=== PATIENT | male | born 2000 | race African-American/Black ===

== ENCOUNTER 2024-05-12 16:36 | Emergency (ER) | payer OTHER, SELFPAY ==
--- NOTE | ~2024-05-12 | XR_ITS ---
CLINICAL HISTORY: fall unto shoulder pain. fracture? dislcoation? 4 view right shoulder Comparison: None Findings: Bones intact. Ray 3 AC joint separation No significant loss of joint space or osteophytes. No erosions. No radiopaque foreign body. IMPRESSION: 1. Grade 3 AC joint separation This document has been electronically signed by: Luca Khalil MD on 05/12/2024 18:03:53
[2024-05-12 16:51] VITALS: BP 147/87; PULSE 92; RESP 19; TEMP 36.6; O2SAT 98; BMI 23.8
--- NOTE | 2024-05-12 16:58 | ED_ITS ---
HPI - General Adult General Chief complaint: Upper Respiratory Symptoms Stated complaint: fell,right collarbone inj Time Seen by Provider: 05/12/24 19:59 History of Present Illness HPI narrative: Patient complains of right shoulder pain after falling while going fast downhill snowboarding, denies any head injury or neck injury no back pain no neck pain no headache no other extremity injuries Denies numbness weakness or tingling Related Data Previous Rx's ?Medication ?Instructions ?Recorded acetaminophen 500 mg tablet 1,000 mg (2 x 500 mg) PO QID PRN 05/12/24 pain #30 tabs ibuprofen 600 mg tablet 600 mg PO Q6H PRN pain #20 tabs 05/12/24 oxycodone 5 mg tablet 5 mg PO Q6H PRN pain #14 tabs 05/12/24 Allergies Allergy/AdvReac Type Severity Reaction Status Date / Time No Known Allergies Allergy Verified 05/12/24 16:56 [facility] Past Medical History Source: nursing notes reviewed Social History Social History Advance Directives: No Advance Directives Information Provided: No Do you have a plan to hurt others: No Plan Physical Exam ED Vital Signs: Vital Signs - 24 hr 05/12/24 16:51 05/12/24 20:38 Temperature 98 F 98 F Pulse Rate 92 92 Respiratory Rate 19 19 Blood Pressure 147/87 H 147/87 H Pulse Oximetry 98 98 BMI result Body Mass Index 23.8 General appearance no distress Head is normocephalic atraumatic The neck is supple and nontender The chest is clear to auscultation bilateral Extremities the right shoulder has a bump on top, it is tender and held in internal rotation with a sling, the skin is intact, it is neurovascular intact distal with good sensation in fingertips and full strength in the hand and a normal pulse, radial pulse normal Other extremities normal Neuro no focal motor or sensory deficits Course Course Course Narrative: RME: 24-year-old male presents to ED for right shoulder pain. Patient was snowboarding any slept and fell onto his right shoulder. Patient denies hitting head. Patient is holding right upper extremity with left. Possible dislocation crusted arnulfo. X-ray ordered. X-ray showed a grade 3 acromioclavicular separation, patient is given sling and swath, analgesics and referral to Orthopedics Medications Administered Discontinued Medications Generic Name Dose Route Start Last Admin Trade Name Freq PRN Reason Stop Dose Admin Acetaminophen 975 mg 05/12/24 20:15 05/12/24 20:28 Acetaminophen 325 Mg Tablet PO 05/12/24 20:16 975 mg ONCE ONE Administration Ibuprofen 600 mg 05/12/24 20:15 05/12/24 20:30 Ibuprofen 600 Mg Tablet PO 05/12/24 20:16 600 mg ONCE ONE Administration Oxycodone HCl 5 mg 05/12/24 20:15 05/12/24 20:28 Oxycodone Hcl Immed Release 5 Mg Tablet PO 05/12/24 20:16 5 mg ONCE ONE Administration Discharge Plan Discharge Clinical Impression: Grade 3 separation of right shoulder Patient Disposition: Home, Self-Care Additional Instructions: X-ray showed a grade 3 shoulder separation, which is also known as an AC separation or rotator cuff injury The treatment is often surgical, so very important to follow with a specialist Return any time any worse condition or any concerns The oxycodone is a narcotic that can cause drowsiness so no driving for 6 hours after taking Prescriptions: New acetaminophen 500 mg tablet 1,000 mg PO QID PRN (Reason: pain) Qty: 30 0RF ibuprofen 600 mg tablet 600 mg PO Q6H PRN (Reason: pain) Qty: 20 0RF oxycodone 5 mg tablet 5 mg PO Q6H PRN (Reason: pain) Qty: 14 0RF Rx Instructions: Partial Fill upon patient request. Referrals: Pedro Thompson MD [Physician] - (Right shoulder separation) Stand Alone Forms: Work/School Release Interventions: ED Discharge Assessment Last Done: 05/12/24 20:38 Discharge Date/Time: 05/12/24 20:39 Print Language: Nicaraguan
--- OUTSIDE RECORDS SUMMARY | 2024-05-12 20:12 | XMS_ITS | Encounter Summary ---
Author Name [facility] [place] Organization [facility] [place] [place] Address [address] [place] [address] Care Team Providers Care Director Of Patient Care Name Role Phone ANGEL SAEED Primary Care Provider Unavailab le Selected Encounter This section includes the information on record at [place] for the Encounter. Date/Time Encounter Type Encounter Description Reason Pro vider Source Jul 10, 2023 02:40 PM Outpatient Encounter ADMIN PAT ACTIVTIES (MASNONCT) IHE Encounter Template Text not used by [place] Plan of Treatment: Future Appointments (+ 6 months) and Future Tests (+/- 45 days) The Plan of Treatment section includes future care activities for the patient from all [place] treatmentfacilities. This section includes future appointments and future orders which are active, pending or scheduled. Future Appointments This section includes appointments that were scheduled to occur 6 months from the date of the Encounter, up to a maximum of 20 appointments. The data comes from all [place] treatment facilities. Appointment Date/Time Appointment Type Appointme nt Facility Name Jul 14, 2023 01:30 PM AMBULATORY - MEDICINE [facility] Active, Pending, and Scheduled Orders This section includes a listing of several types of active, pending, and scheduled orders, including clinic medications orders, diagnostic test orders, procedure orders and consult orders; where the start date of the order is 45 days before the date of the Encounter or 45 days after the date of theEncounter. The data comes from all [place] treatment facilities. Test Date/Time Test Type Test Details Facility Name Jun 23, 2023 12:00 AM Laboratory - Chemistry Order CBC (w/reflex Diff) LAV-BLOOD SP ONCE [facility] Jun 23, 2023 12:00 AM Laboratory - Chemistry Order COMPREHENSIVE METABOLIC PANEL PLASMA-GREEN SP ONCE [facility] Jun 23, 2023 12:00 AM Laboratory - Chemistry Order URINALYSIS URINE [facility] Jun 23, 2023 12:00 AM Laboratory - Chemistry Order LIPID PANEL PLASMA-GREEN [facility] Jun 23, 2023 12:00 AM Laboratory - Chemistry Order HGBA1c & eAG LAV-BLOOD [facility] Jun 23, 2023 12:00 AM Laboratory - Chemistry Order MICROALBUMIN (RANDOM URINE) URINE [facility] Jun 23, 2023 12:00 AM Laboratory - Chemistry Order VITAMIN D, 25-HYDROXY SERUM-SST(GOLD) [facility] Jun 23, 2023 12:00 AM Laboratory - Chemistry Order TSH SERUM-SST(GOLD) [facility] Encounter Notes: All associated encounter notes This section contains the clinical notes associated to the Encounter. Date/Time Encounter Note(s) Provider Source Jul 10, 2023 02:40 PM ADMINISTRATIVE NOTE: LOCAL TITLE: 1 [facility] PATIENT CONTACT NOTE STANDARD TITLE: ADMINISTRATIVE NOTE DATE OF NOTE: JUL 10, 2023@14:40 ENTRY DATE: JUL 10, 2023@14:40:10 AUTHOR: ARTIE BERNABE EXP COSIGNER: URGENCY: STATUS: COMPLETED REASON FOR CALLING : Bethel called he missed the call and requesting for a call back now. Thank you. /ronald/ ARTIE BERNABE ADVANCED HYPERION ESSBASE DEVELOPER Signed: 07/10/2023 14:41 Receipt Acknowledged By: 07/14/2023 07:37 /ronald/ DANITZA SOTO dairy specialist multiple effect evaporator operator ARTIE BERNABE [facility]
--- OUTSIDE RECORDS SUMMARY | 2024-05-12 20:12 | XMS_ITS | Encounter Summary ---
Author Name [facility] [place] Organization [facility] [place] [facility] [place] Address [address] [place] [address] Care Team Providers Care Medical Aide Name Role Phone ANGEL SAEED Primary Care Provider Unavailab le Selected Encounter This section includes the information on record at [place] for the Encounter. Date/Time Encounter Type Encounter Description Reason Pro vider Source Jul 14, 2023 07:37 AM Outpatient Encounter TELEPHONE PRIMARY CARE IHE Encounter Template Text not used by [place] Plan of Treatment: Future Appointments (+ 6 months) and Future Tests (+/- 45 days) The Plan of Treatment section includes future care activities for the patient from all [place] treatmentfacilities. This section includes future appointments and future orders which are active, pending or scheduled. Active, Pending, and Scheduled Orders This section includes a listing of several types of active, pending, and scheduled orders, including clinic medications orders, diagnostic test orders, procedure orders and consult orders; where the start date of the order is 45 days before the date of the Encounter or 45 days after the date of theEncounter. The data comes from all [place] treatment facilities. Test Date/Time Test Type Test Details Facility Name Jun 23, 2023 12:00 AM Laboratory - Chemistry Order CBC (w/reflex Diff) LAV-BLOOD SP ONCE [facility] Jun 23, 2023 12:00 AM Laboratory - Chemistry Order COMPREHENSIVE METABOLIC PANEL PLASMA-GREEN SP ONCE [facility] Jun 23, 2023 12:00 AM Laboratory - Chemistry Order URINALYSIS URINE SP [facility] Jun 23, 2023 12:00 AM Laboratory - Chemistry Order LIPID PANEL PLASMA-GREEN SP [facility] Jun 23, 2023 12:00 AM Laboratory - Chemistry Order HGBA1c & eAG LAV-BLOOD SP [facility] Jun 23, 2023 12:00 AM Laboratory - Chemistry Order MICROALBUMIN (RANDOM URINE) URINE [facility] Jun 23, 2023 12:00 AM Laboratory - Chemistry Order VITAMIN D, 25-HYDROXY SERUM-SST(GOLD) [facility] Jun 23, 2023 12:00 AM Laboratory - Chemistry Order TSH SERUM-SST(GOLD) [facility] Encounter Notes: All associated encounter notes This section contains the clinical notes associated to the Encounter. Date/Time Encounter Note(s) Provider Source Jul 14, 2023 10:00 AM TELEPHONE ENCOUNTE R NOTE: LOCAL TITLE: PACT Telephone Note STANDARD TITLE: TELEPHONE ENCOUNTER NOTE DATE OF NOTE: JUL 14, 2023@10:00 ENTRY DATE: JUL 14, 2023@07:38:02 AUTHOR: DANITZA SOTO EXP COSIGNER: URGENCY: STATUS: COMPLETED S - 07/07/23 Requesting to speak with pcp in regard to some paperwork. Per vet, it's a lot of information to relay; requesting call to discuss. B - PMHx - without significant past medical history. Noted history of hallux valgus bilaterally that is not currently functionally impairing. 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 Patient has no current complaints. He is interested in reenlisting in the [employer] and [facility] has requested routine physical exam. A - TC to pt. Verified with 2 ID's. Clarified documents that are requested. Re enlisting to [employer]. Pt has coordinated with [employer] office and only needs physical report from PCP. Pt did not leave a copy of the documents from last visit. Advised pt to send pdf file via secure message for review. R - Pt verbalized understanding, agree with plan of care and appreciative of care. /ronald/ DANITZA SOTO RN Primary Care stock feeder Signed: 07/14/2023 10:14 [facility]
--- OUTSIDE RECORDS SUMMARY | 2024-05-12 20:12 | XMS_ITS | Encounter Summary ---
Author Name [facility] Organization [facility] ([place]) Address [address] [place] [id number] Care Team Providers Care Outside Sales Representative Insurance Name Role Phone ANGEL SAEED Primary Care Provider Unavailab le Selected Encounter This section includes the information on record at [place] for the Encounter. Date/Time Encounter Type Encounter Description Reason Provider Source Jul 14, 2023 01:30 PM HC PRO PHONE CALL 5-10 MIN TELEPHONE PRIMARY CARE ICD-10-CM Z71.89 Other specified counseling DANITZA SOTO [facility] Encounter Template Text not used by [place] Assessments - Encounter Diagnoses This section includes the primary and secondary diagnoses documented for the Encounter. Date/Time Primary/Secondary Diagnosis Diagnosis Name Provider Source Jul 14, 2023 01:30 PM PRIMARY Other specified counseling [facility] Plan of Treatment: Future Appointments (+ 6 months) and Future Tests (+/- 45 days) The Plan of Treatment section includes future care activities for the patient from all [place] treatmentfacilities. This section includes future appointments and [...] of theEncounter. The data comes from all [place] treatment facilities. Test Date/Time Test Type Test Details Facility Name Jun 23, 2023 12:00 AM Laboratory - Chemistry Order CBC (w/reflex Diff) LAV-BLOOD SP ONCE [facility] Jun 23, 2023 12:00 AM Laboratory - Chemistry Order COMPREHENSIVE METABOLIC PANEL PLASMA-GREEN ONCE [facility] Jun 23, 2023 12:00 AM Laboratory - Chemistry Order URINALYSIS URINE [facility] Jun 23, 2023 12:00 AM Laboratory - Chemistry Order LIPID PANEL PLASMA-GREEN [facility] Jun 23, 2023 12:00 AM Laboratory - Chemistry Order HGBA1c & eAG LAV-BLOOD [facility] Jun 23, 2023 12:00 AM Laboratory - Chemistry Order MICROALBUMIN (RANDOM URINE) URINE [facility] Jun 23, 2023 12:00 AM Laboratory - Chemistry Order VITAMIN D, 25-HYDROXY SERUM-SST(GOLD) [facility] Jun 23, 2023 12:00 AM Laboratory - Chemistry Order TSH SERUM-SST(GOLD) [facility] Social History: Smoking Status (Most current) and Tobacco Use (All prior to encounter date) This section includes the most current, and the historical, smoking and tobacco- related health factors from the [place] facility where the Encounter took place. Current Smoking Status This section includes the most current smoking, or tobacco-related health factor, from the [place] facility where the Encounter took place. Date/Time Current Smoking Status Comment [place] [facility] May 12, 2023 09:00 AM [place]-TOBACCO FORMER USER [facility] Tobacco Use History This section includes a history of the smoking, or tobacco-related health factors, that were collected on or before the date of the Encounter. The data comes from the [place] facility where the Encounter took place. Date/Time Smoking Status/Tobacco Use Comment F acility May 12, 2023 09:00 AM [place]-TOBACCO QUIT < 1 YEAR [facility]
--- OUTSIDE RECORDS SUMMARY | 2024-05-12 20:12 | XMS_ITS ---
Author Name [facility] [place] Organization [facility] [place] Address [address] [place] [address] Care Team Providers Care Outdoor Adventure Instructor Name Role Phone ANGEL SAEED Primary Care Provider Unavailab le Selected Encounter This section includes the information on record at [place] for the Encounter. Date/Time Encounter Type Encounter Description Reason Pro vider Source Jul 07, 2023 01:37 PM Outpatient Encounter ADMIN PAT ACTIVTIES (MASNONCT) IHE Encounter Template Text not used by [place] Plan of Treatment: Future Appointments (+ 6 months) and Future Tests (+/- 45 days) The Plan of Treatment section includes future care activities for the patient from all [place] treatmentfacilities. This section includes future appointments and future orders which are active, pending or scheduled. Future Appointments This section includes appointments that were scheduled to occur 6 months from the date of the Encounter, up to a maximum of 20 appointments. The data comes from all [place] treatment facilities. Appointment Date/Time Appointment Type Appointme nt Facility Name Jul 14, 2023 01:30 PM AMBULATORY - MEDICINE [facility] Active, Pending, and Scheduled Orders This section includes a listing of several types of active, pending, and scheduled orders, including clinic medications orders, diagnostic test orders, procedure orders and consult orders; where the start date of the order is 45 days before the date of the Encounter or 45 days after the date of theEncounter. The data comes from all [place] treatment facilities. Test Date/Time Test Type Test Details Facility Name Jun 23, 2023 12:00 AM Laboratory - Chemistry Order CBC (w/reflex Diff) [facility] Jun 23, 2023 12:00 AM Laboratory - Chemistry Order COMPREHENSIVE METABOLIC PANEL PLASMA-GREEN SP ONCE [facility] Jun 23, 2023 12:00 AM Laboratory - Chemistry Order URINALYSIS URINE [facility] Jun 23, 2023 12:00 AM Laboratory - Chemistry Order LIPID PANEL PLASMA-GREEN [facility] Jun 23, 2023 12:00 AM Laboratory - Chemistry Order HGBA1c & eAG LAV-BLOOD [facility] Jun 23, 2023 12:00 AM Laboratory - Chemistry Order MICROALBUMIN (RANDOM URINE) URINE [facility] Jun 23, 2023 12:00 AM Laboratory - Chemistry Order VITAMIN D, 25-HYDROXY SERUM-SST(GOLD) [facility] Jun 23, 2023 12:00 AM Laboratory - Chemistry Order TSH SERUM-SST(GOLD) [facility] Encounter Notes: All associated encounter notes This section contains the clinical notes associated to the Encounter. Date/Time Encounter Note(s) Provider Source Jul 07, 2023 01:37 PM ADMINISTRATIVE NOTE: LOCAL TITLE: [address] PATIENT CONTACT NOTE STANDARD TITLE: ADMINISTRATIVE NOTE DATE OF NOTE: JUL 07, 2023@13:37 ENTRY DATE: JUL 07, 2023@13:37:09 AUTHOR: DIETER CAMARA EXP COSIGNER: URGENCY: STATUS: COMPLETED Spoke with: Patient Contact info per CPRS: JARROD CASAS [address] [address] What is the best time to call you during regular business hours? Anytime Reason for calling: Request to speak with Outdoor Adventure Instructor: PACT team Requesting to speak with pcp in regard to some paperwork. Per vet, it's a lot of information to relay; requesting call to discuss. /ronald/ DIETER ENRIQUE Signed: 07/07/2023 13:38 Receipt Acknowledged By: 07/08/2023 07:29 /ronald/ DANITZA SOTO RN PACT RNCM [facility]
--- OUTSIDE RECORDS SUMMARY | 2024-05-12 20:12 | XMS_ITS | Encounter Summary ---
Author Name [facility] [place] Organization [facility] [place] Address [address] [place] [address] Care Team Providers Care Marketing Professional Name Role Phone ANGEL SAEED Primary Care Provider Unavailab le Selected Encounter This section includes the information on record at [place] for the Encounter. Date/Time Encounter Type Encounter Description Reason Pro vider Source Jul 09, 2023 10:36 AM Outpatient Encounter TELEPHONE PRIMARY CARE IHE Encounter Template Text not used by [place] Plan of Treatment: Future Appointments (+ 6 months) and Future Tests (+/- 45 days) The Plan of Treatment section includes future care activities for the patient from all [place] treatmentfacilities. This section includes future appointments and future orders which are active, pending or scheduled. Future Appointments This section includes appointments that were scheduled to occur 6 months from the date of the Encounter, up to a maximum of 20 appointments. The data comes from all [place] treatment facilities. Appointment Date/Time Appointment Type Appointme nt Facility Name Jul 14, 2023 01:30 PM AMBULATORY - MEDICINE [facility] Active, Pending, and Scheduled Orders This section includes a listing of several types of active, pending, and scheduled orders, including clinic medications orders, diagnostic test orders, procedure orders and consult orders; where the start date of the order is 45 days before the date of the Encounter or 45 days after the date of theEncounter. The data comes from all [place] treatment facilities. Test Date/Time Test Type Test Details Facility Name Jun 23, 2023 12:00 AM Laboratory - Chemistry Order CBC (w/reflex Diff) LAV-BLOOD SP ONCE [facility] Jun 23, 2023 12:00 AM Laboratory - Chemistry Order COMPREHENSIVE METABOLIC PANEL PLASMA-GREEN SP ONCE [facility] Jun 23, 2023 12:00 AM Laboratory - Chemistry Order URINALYSIS URINE [facility] Jun 23, 2023 12:00 AM Laboratory - Chemistry Order LIPID PANEL PLASMA-GREEN [facility] Jun 23, 2023 12:00 AM Laboratory - Chemistry Order HGBA1c & eAG LAV-BLOOD [facility] Jun 23, 2023 12:00 AM Laboratory - Chemistry Order MICROALBUMIN (RANDOM URINE) URINE [facility] Jun 23, 2023 12:00 AM Laboratory - Chemistry Order VITAMIN D, 25-HYDROXY SERUM-SST(GOLD) [facility] Jun 23, 2023 12:00 AM Laboratory - Chemistry Order TSH SERUM-SST(GOLD) [facility] Encounter Notes: All associated encounter notes This section contains the clinical notes associated to the Encounter. Date/Time Encounter Note(s) Provider Source Jul 09, 2023 10:36 AM TELEPHONE ENCOUNTE R NOTE: LOCAL TITLE: PACT Telephone Note STANDARD TITLE: TELEPHONE ENCOUNTER NOTE DATE OF NOTE: JUL 09, 2023@10:36 ENTRY DATE: JUL 09, 2023@10:36:56 AUTHOR: DANITZA SOTO EXP COSIGNER: URGENCY: STATUS: COMPLETED TC to pt left voicemail to call back regarding request. Left [facility] [phone] call back. /ronald/ DANITZA SOTO RN Primary Care collision repairer Signed: 07/09/2023 10:37 DANITZA SOTO [facility]
--- OUTSIDE RECORDS SUMMARY | 2024-05-12 20:12 | XMS_ITS | Encounter Summary ---
Author Name [facility] [place] Organization [facility] [place] Address [address] [place] [address] Care Team Providers Care Drop Man Name Role Phone ANGEL SAEED Primary Care Provider Unavailab le Selected Encounter This section includes the information on record at [place] for the Encounter. Date/Time Encounter Type Encounter Description Reason Pro vider Source Jul 07, 2023 02:34 PM Outpatient Encounter TELEPHONE PRIMARY CARE IHE Encounter Template Text not used by [place] Plan of Treatment: Future Appointments (+ 6 months) and Future Tests (+/- 45 days) The Plan of Treatment section includes future care activities for the patient from all [place] treatmentfacilities. This section includes future appointments and future orders which are active, pending or scheduled. Future Appointments This section includes appointments that were scheduled to occur 6 months from the date of the Encounter, up to a maximum of 20 appointments. The data comes from all [place] treatment facilities. Appointment Date/Time Appointment Type Appointme nt Facility Name Jul 14, 2023 01:30 PM AMBULATORY - MEDICINE [facility] Active, Pending, and Scheduled Orders This section includes a listing of several types of active, pending, and scheduled orders, including clinic medications orders, diagnostic test orders, procedure orders and consult orders; where the start date of the order is 45 days before the date of the Encounter or 45 days after the date of theEncounter. The data comes from all [place] treatment facilities. Test Date/Time Test Type Test Details Facility Name Jun 23, 2023 12:00 AM Laboratory - Chemistry Order CBC (w/reflex Diff) LAV-BLOOD SP ONCE [facility] Jun 23, 2023 12:00 AM Laboratory - Chemistry Order COMPREHENSIVE METABOLIC PANEL PLASMA-GREEN SP ONCE [facility] Jun 23, 2023 12:00 AM Laboratory - Chemistry Order URINALYSIS URINE [facility] Jun 23, 2023 12:00 AM Laboratory - Chemistry Order LIPID PANEL PLASMA-GREEN [facility] Jun 23, 2023 12:00 AM Laboratory - Chemistry Order HGBA1c & eAG LAV-BLOOD [facility] Jun 23, 2023 12:00 AM Laboratory - Chemistry Order MICROALBUMIN (RANDOM URINE) URINE [facility] Jun 23, 2023 12:00 AM Laboratory - Chemistry Order VITAMIN D, 25-HYDROXY SERUM-SST(GOLD) [facility] Jun 23, 2023 12:00 AM Laboratory - Chemistry Order TSH SERUM-SST(GOLD) [facility] Encounter Notes: All associated encounter notes This section contains the clinical notes associated to the Encounter. Date/Time Encounter Note(s) Provider Source Jul 10, 2023 02:13 PM TELEPHONE ENCOUNTE R NOTE: LOCAL TITLE: PACT Telephone Note STANDARD TITLE: TELEPHONE ENCOUNTER NOTE DATE OF NOTE: JUL 10, 2023@14:13 ENTRY DATE: JUL 07, 2023@14:34:15 AUTHOR: DANITZA SOTO EXP COSIGNER: URGENCY: STATUS: COMPLETED TC to pt left voicemail to call back regarding request. Left [facility] [phone] call back. /ronald/ DANITZA SOTO RN Primary Care comp field case manager Signed: 07/10/2023 14:14 DANITZA SOTO [facility]
--- OUTSIDE RECORDS SUMMARY | 2024-05-12 20:12 | XMS_ITS | Encounter Summary ---
Author Name [facility] ([place]) Organization [facility] ([place]) Address [address] [place] [address] Care Team Providers Care Marble Installer Name Role Phone MARCELO SAEED Primary Care Provider Unavailab le Selected Encounter This section includes the information on record at [place] for the Encounter. Date/Time Encounter Type Encounter Description Reason Provider Source Jul 16, 2023 11:47 AM Outpatient Encounter PRIMARY CARE/MEDICINE ONEAL POLANCO [facility] Encounter Template Text not used by [place] Plan of Treatment: Future Appointments (+ 6 months) and Future Tests (+/- 45 days) The Plan of Treatment section includes future care activities for the patient from all [place] treatmentfacilities. This section includes future appointments and [...] of theEncounter. The data comes from all [place] treatment facilities. Test Date/Time Test Type Test Details Facility Name Jun 23, 2023 12:00 AM Laboratory - Chemistry Order CBC (w/reflex Diff) LAV-BLOOD SP ONCE [facility] Jun 23, 2023 12:00 AM Laboratory - Chemistry Order COMPREHENSIVE METABOLIC PANEL PLASMA-GREEN SP ONCE [facility] Jun 23, 2023 12:00 AM Laboratory - Chemistry Order URINALYSIS URINE SP [facility] Jun 23, 2023 12:00 AM Laboratory - Chemistry Order LIPID PANEL PLASMA-GREEN SP [facility] Jun 23, 2023 12:00 AM Laboratory - Chemistry Order HGBA1c & eAG LAV-BLOOD [facility] Jun 23, 2023 12:00 AM Laboratory - Chemistry Order MICROALBUMIN (RANDOM URINE) URINE [facility] Jun 23, 2023 12:00 AM Laboratory - Chemistry Order VITAMIN D, 25-HYDROXY SERUM-SST(GOLD) [facility] Jun 23, 2023 12:00 AM Laboratory - Chemistry Order TSH SERUM-SST(GOLD) [facility] Encounter Notes: All associated encounter notes This section contains the clinical notes associated to the Encounter. Date/Time Encounter Note(s) Provider Source Jul 20, 2023 01:41 PM PRIMARY CARE SECUR E MESSAGING: LOCAL TITLE: Primary Care Secure Messaging STANDARD TITLE: PRIMARY CARE SECURE MESSAGING DATE OF NOTE: JUL 20, 2023@13:41 ENTRY DATE: JUL 20, 2023@11:41:35 AUTHOR: ONEAL POLANCO EXP COSIGNER: URGENCY: STATUS: COMPLETED ------Original Message ------- Sent: 07/20/2023 11:12 AM ET From: JARROD CASAS To: Yohan Saeed (Primary Care) - [place] Subject: General:General Attachments: O 1040.31.pdf (425.02 KB) As requested ------Original Message ------- Sent: 07/20/2023 02:41 PM ET From: ONEAL POLANCO To: JARROD CASAS Subject: General:General Thank you and this will be forwarded to your PCP. Have a nice day. /ronald/ ONEAL POLANCO Signed: 07/20/2023 11:41 Receipt Acknowledged By: 07/20/2023 14:30 /ronald/ Marcelo Saeed MD Internal Medicine ONEAL POLANCO [facility] Jul 16, 2023 11:47 AM PRIMARY CARE SECUR E MESSAGING: LOCAL TITLE: Primary Care Secure Messaging STANDARD TITLE: PRIMARY CARE SECURE MESSAGING DATE OF NOTE: JUL 16, 2023@11:47 ENTRY DATE: JUL 16, 2023@08:47:20 AUTHOR: ONEAL POLANCO EXP COSIGNER: URGENCY: STATUS: COMPLETED ------Original Message ------- Sent: 07/16/2023 11:47 AM ET From: ONEAL POLANCO To: JARROD CASAS Subject: General:General Greetings. Per remarks by your PCP, Uploaded document contains no text. Please re-upload. Thanks!' In this regard, please check attachment when sending it back. Thank you and have a nice day. /ronald/ ONEAL POLANCO Signed: 07/16/2023 08:47 ONEAL POLANCO [facility]
--- OUTSIDE RECORDS SUMMARY | 2024-05-12 20:12 | XMS_ITS | Encounter Summary ---
Author Name [facility] [place] Organization [facility] ([place] Address [address] [place] [address] Care Team Providers Care Electric Relay Tester Name Role Phone MARCELO LOGAN Primary Care Provider Unavailab le Selected Encounter This section includes the information on record at [place] for the Encounter. Date/Time Encounter Type Encounter Description Reason Provider Source Jul 15, 2023 02:31 PM Outpatient Encounter PRIMARY CARE/MEDICINE ONEAL POLANCO [facility] Encounter Template Text not used by [place] Plan of Treatment: Future Appointments (+ 6 months) and Future Tests (+/- 45 days) The Plan of Treatment section includes future care activities for the patient from all [place] treatmentfacilities. This section includes future appointments and [...] of theEncounter. The data comes from all [place] treatment facilities. Test Date/Time Test Type Test Details Facility Name Jun 23, 2023 12:00 AM Laboratory - Chemistry Order CBC (w/reflex Diff) LAV-BLOOD SP ONCE [facility] Jun 23, 2023 12:00 AM Laboratory - Chemistry Order COMPREHENSIVE METABOLIC PANEL PLASMA-GREEN SP [facility]CE [facility] Jun 23, 2023 12:00 AM Laboratory - Chemistry Order URINALYSIS URINE SP [facility] Jun 23, 2023 12:00 AM Laboratory - Chemistry Order LIPID PANEL PLASMA-GREEN SP [facility] Jun 23, 2023 12:00 AM Laboratory - Chemistry Order HGBA1c & eAG LAV-BLOOD [facility] Jun 23, 2023 12:00 AM Laboratory - Chemistry Order MICROALBUMIN (RANDOM URINE) URINE [facility] Jun 23, 2023 12:00 AM Laboratory - Chemistry Order VITAMIN D, 25-HYDROXY SERUM-SST(GOLD) [facility] Jun 23, 2023 12:00 AM Laboratory - Chemistry Order TSH SERUM-SST(GOLD) [facility] Encounter Notes: All associated encounter notes This section contains the clinical notes associated to the Encounter. Date/Time Encounter Note(s) Provider Source Jul 15, 2023 02:31 PM PRIMARY CARE SECUR E MESSAGING: LOCAL TITLE: Primary Care Secure Messaging STANDARD TITLE: PRIMARY CARE SECURE MESSAGING DATE OF NOTE: JUL 15, 2023@14:31 ENTRY DATE: JUL 15, 2023@11:31:16 AUTHOR: ONEAL POLANCO EXP COSIGNER: URGENCY: STATUS: COMPLETED Primary Care Secure Messaging Has ADDENDA ------Original Message ------- Sent: 07/15/2023 01:59 PM ET From: JARROD CASAS To: Yohan Logan (Primary Care) - [place] Subject: General:Re-Enlistment paperwork Attachments: Re-enlistment pg.3 Screening.txt (4 bytes) I've spoke with Entrance Processing and head of [place] [employer] for [employer]. Having you (my primary care physician) sign this document is the only way I'll be able to re-enlist. Signing this document only states that I am in a condition of good health. Please [place] screened and qualified. A check arnulfo is required in the full duty box. Once again all rees are stating that I have no injuries, illness or condition that would stop me from operating at full capacity. ------Original Message ------- Sent: 07/15/2023 02:31 PM ET From: ONEAL POLANCO To: JARROD CASAS Subject: General:Re-Enlistment paperwork Greetings. I will tag your PCP on this message for his review of the said document. We will update you on any progress. Thank you and have a nice day.?? /ronald/ ONEAL POLANCO Signed: 07/15/2023 11:31 Receipt Acknowledged By: 07/15/2023 15:35 /ronald/ Marcelo Logan MD Internal Medicine 07/15/2023 ADDENDUM STATUS: COMPLETED Uploaded document contains no text. Please re-upload. Thanks! /ronald/ Marcelo Logan MD Internal Medicine Signed: 07/15/2023 15:[address] [facility]
--- OUTSIDE RECORDS SUMMARY | 2024-05-12 20:13 | XMS_ITS | Encounter Summary ---
Author Name [facility] Organization Department of [facility], [facility] ([place]) Address [address] [place] [address] Care Team Providers Care Advertising Sales Associate Name Role Phone MARCELO LOGAN Primary Care Provider Unavailab le Selected Encounter This section includes the information on record at [place] for the Encounter. Date/Time Encounter Type Encounter Description Reason Provider Source Jun 23, 2023 01:00 PM OFFICE O/P NEW MOD 45 MIN PRIMARY CARE/MEDICINE ICD-10-CM Z77.29 Contact with and exposure to other hazardous substances TATIANA LOGAN [facility] Encounter Template Text not used by [place] Assessments - Encounter Diagnoses This section includes the primary and secondary diagnoses documented for the Encounter. Date/Time Primary/Secondary Diagnosis Diagnosis Name Provider Source Jun 23, 2023 02:11 PM PRIMARY Contact with and exposure to other hazardous substances TATIANA LOGAN [facility] Jun 23, 2023 02:11 PM SECONDARY Encntr for general adult medical exam w/o abnormal findings TATIANA LOGAN [facility] Plan of Treatment: Future Appointments (+ 6 months) and Future Tests (+/- 45 days) The Plan of Treatment section includes future care activities for the patient from all [place] treatmentfacilities. This section includes future appointments and future orders which are active, pending or scheduled. Future Appointments This section includes appointments that were scheduled to occur 6 months from the date of the Encounter, up to a maximum of 20 appointments. The data comes from all [place] treatment facilities. Appointment Date/Time Appointment Type Appointme nt Facility Name Jul 14, 2023 01:30 PM [facility] Active, Pending, and Scheduled Orders This section includes a listing of several types of active, pending, and scheduled orders, including clinic medications orders, diagnostic test orders, procedure orders and consult orders; where the start date of the order is 45 days before the date of the Encounter or 45 days after the date of theEncounter. The data comes from all [place] treatment [facility]. Test Date/Time Test Type Test Details Facility Name Jun 23, 2023 12:00 AM Laboratory - Chemistry Order CBC (w/reflex Diff) LAV-BLOOD [facility] Jun 23, 2023 12:00 AM Laboratory - Chemistry Order COMPREHENSIVE METABOLIC PANEL [facility] Jun 23, 2023 12:00 AM Laboratory - Chemistry Order URINALYSIS URINE [facility] Jun 23, 2023 12:00 AM Laboratory - Chemistry Order LIPID PANEL [facility] Jun 23, 2023 12:00 AM Laboratory - Chemistry Order HGBA1c & eAG LAV-BLOOD [facility] Jun 23, 2023 12:00 AM Laboratory - Chemistry Order MICROALBUMIN (RANDOM URINE) URINE [facility] Jun 23, 2023 12:00 AM Laboratory - Chemistry Order VITAMIN D, 25-HYDROXY SERUM-SST(GOLD) [facility] Jun 23, 2023 12:00 AM Laboratory - Chemistry Order TSH SERUM-SST(GOLD) [facility] Vital Signs: All taken on the encounter date This section contains inpatient and outpatient Vital Signs collected on the date of the Encounter. Date/Time Temperature Pulse Blood Pressure Respiratory Rate SP02 Pain Height Weight Body Mass Index Source Jun 23, 2023 01:00 PM 98.3 75 123/60 18 0 71 174 24 [facility] Social History: Smoking Status (Most current) and Tobacco Use (All prior to encounter date) This section includes the most current, and the historical, smoking and tobacco- related health factors from the [place] facility where the Encounter took place. Current Smoking Status This section includes the most current smoking, or tobacco-related health factor, from the [place] facility where the Encounter took place. Date/Time Current Smoking Status Comment Hudson romeo May 12, 2023 09:00 AM VA-TOBACCO FORMER USER [facility] Tobacco Use History This section includes a history of the smoking, or tobacco-related health factors, that were collected on or before the date of the Encounter. The data comes from the [place] facility where the Encounter took place. Date/Time Smoking Status/Tobacco Use Comment Bennie frances May 12, 2023 09:00 AM VA-TOBACCO QUIT < 1 YEAR [facility] Encounter Notes: All associated encounter notes This section contains the clinical notes associated to the Encounter. Date/Time Encounter Note(s) Provider Source Jun 23, 2023 01:38 PM PRIMARY CARE INITIAL EVALUATION NOTE: LOCAL TITLE: Primary Care New Patient Visit STANDARD TITLE: PRIMARY CARE INITIAL EVALUATION NOTE DATE OF NOTE: JUN 23, 2023@13:38 ENTRY DATE: JUN 23, 2023@13:38:50 AUTHOR: MARCELO LOGAN EXP COSIGNER: URGENCY: STATUS: COMPLETED This is a 23 year old MALE here to establish primary care. The patient was identified by the with the following methods: Name, , and SSN. CHIEF COMPLAINT / REASON FOR VISIT: Establish care HISTORY OF PRESENT ILLNESS: Past without significant past medical history. Noted history of hallux valgus bilaterally that is not currently functionally impairing. 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 Patient has no current complaints. He is interested in reenlisting in the [employer] and [facility] has requested routine physical exam. CHRONIC PROBLEMS (generated by the system active problem list): Computerized Problem List is the source for the followin. Medical examinations/reports status 06/23/23 MARCELO LOGAN PAST SURGICAL HISTORY: Denies surgical history. SERVICE CONNECTION: No current Service Connected data found in computer. ALLERGIES DISPLAYED IN VISTA: No Allergy Assessment MEDICATIONS: MEDICATIONS HAVE BEEN RECONCILED---UPDATED LIST IS FOLLOWS: No current outpatient medications found in computer. NON-VA MEDS - NONE FOUND OVER THE COUNTER/SUPPLEMENTS: None FAMILY HISTORY: Denies family history of heart attack, stroke, and/or cancer(s). SOCIAL HISTORY: Family: . 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 : [employer] Tobacco: See Preventive Health. Alcohol: See Preventive Health. Drugs: Denies. Vitals - most recent BMI: 24.3 Height: 71 in [180.3 cm] (06/23/2023 13:00) Weight: 174 lb [78.93 kg] (06/23/2023 13:00) Temp: 98.3 F [36.8 C] (06/23/2023:00) Pulse: 75 (06/23/2023:00) Respirations: 18 (06/23/2023 13:00) BP: 123/60 (06/23/2023 13:00) Pain: 0 (06/23/2023:) PHYSICAL EXAMINATION: APPEARANCE: non-toxic, well appearing NECK: no thyromegaly, no lymph nodes palpable, no bruit LUNGS: clear to auscultation bilaterally HEART: regular rate and rhythm, no murmur ABDOMEN: normal bowel sounds, soft, nontender, no gaurding, no rebound EXTREMITIES: no edema SKIN: No suspicious lesion noted NEURO: AAOx3 short and technician terminal and repeater memory within normal limits Speech- normal, no hoarseness CN2-12 appeared grossly intact Motor 5/5 bilaterally in upper and lower extremities Gait- normal ASSESSMENT/PLAN: The patient is a 23 year old MALE with Routine medical exam: Patient denies and physical exam does not suggest any gross physical/functional limitations. Patient denies significant impairment secondary to prior diagnosis of hallux valgus. Previously reported symptoms of anxiousness are not currently affecting patient. He does not have symptoms consistent with generalized anxiety disorder as documented in the May 12 mental health comprehensive assessment. TIME SPENT COUNSELING AND COORDINATING CARE (includes prescription drug management, review of outside and historical records, addressing social determinates of health, and coordination of care with other providers): 51 minutes RETURN TO CLINIC: 12 months FOLLOW-UP: RECALL DATE CLINIC No data available EDUCATION: The patient acknowledges and endorses the care plan delineated above. See clinical reminders below for additional educational efforts: Clinical Reminders: Hepatitis C Testing: Patient declines HCV lab test. HIV Screening: The patient declines to be tested for HIV infection. Medication Reconciliation: Med Rec performed with patient/caregiver: -Home meds compared with CPRS meds -Medication allergies (local and remote) reviewed -Discrepancies, if any, discussed with patient/caregiver -Changes, if any, addressed in Plan section of visit note and reflected in CPRS medication list -Patient/caregiver provided with an updated medication list (or written instructions provided for minor med changes) -Education provided regarding managing personal medication information, including carrying an updated med list at all times Allergies/ADRs (Tool #5) FACILITY ALLERGY/ADR -------- No Remote Allergy/ADR Data available for this patient [facility] No Allergy Assessment Completed Med Recon NoGlossary (Tool #1) INCLUDED IN THIS LIST: Alphabetical list of active outpatient prescriptions dispensed from this VA (local) and dispensed from another VA or DoD facility (remote) as well as inpatient orders (local pending and active), local clinic medications, locally documented non-VA medications, and local prescriptions that have or been discontinued in the past 90 days. Non-VA Meds Last Documented On: Data not found NOTE The display of VA prescriptions dispensed from another VA or DoD facility (remote) is limited to active outpatient prescription entries matched to National Drug File at the originating site and may not include some items such as investigational drugs, compounds, etc. NOT INCLUDED IN THIS LIST: Medications self-entered by the patient into personal health records (i.e. [employer]) are NOT included in this list. Non-VA medications documented outside this [place], remote inpatient orders (regardless of status) and remote clinic medications are NOT included in this list. The patient and provider must always discuss medications the patient is taking, regardless of where the medication was dispensed or obtained. SUPPLIES Medication Inventory: Does the VA medication list below reflect EXACTLY what the patient and/or caregiver state the patient is taking (including non-VA prescriptions, over the counter medications, vitamins and herbal supplements)? Yes Allergies: No Allergy Assessment Allergies/ADRs (Tool #5) FACILITY ALLERGY/ADR -------- No Remote Allergy/ADR Data available for this patient [facility] No Allergy Assessment Completed Med Recon [facility] (Tool #1) INCLUDED IN THIS LIST: Alphabetical list of active outpatient prescriptions dispensed from this VA (local) and dispensed from another VA or DoD facility (remote) as well as inpatient orders (local pending and active), local clinic medications, locally documented non-VA medications, and local prescriptions that have or been discontinued in the past 90 days. Non-VA Meds Last Documented On: Data not found NOTE The display of VA prescriptions dispensed from another VA or DoD facility (remote) is limited to active outpatient prescription entries matched to National Drug File at the originating site and may not include some items such as investigational drugs, compounds, etc. NOT INCLUDED IN THIS LIST: Medications self-entered by the patient into personal health records (i.e. [employer]) are NOT included in this list. Non-VA medications documented outside this VA, remote inpatient orders (regardless of status) and remote clinic medications are NOT included in this list. The patient and provider must always discuss medications the patient is taking, regardless of where the medication was dispensed or obtained. SUPPLIES Toxic Exposure Screening Follow-Up: Exposure Concern(s): 06/23/2023 Other Environmental Concerns - Toxic Exposure Concern loud noises Follow-up Question(s): 06/23/2023 Benefits/Claims Questions - Toxic Exposure Concern Health/Medical Questions - Toxic Exposure Concern declines further assistance at this time. RHS Screen: RHS Screen Environmental Check Screening was not completed at this time due to: Other: /ronald/ Marcelo Logan MD Internal Medicine Signed: 06/23/2023 14:11 MARCELO LOGAN [facility] Jun 23, 2023 01:08 PM IMMUNIZATION NOTE: LOCAL TITLE: Injections, Immunizations, Skin Tests STANDARD TITLE: IMMUNIZATION NOTE DATE OF NOTE: JUN 23, 2023@13:08 ENTRY DATE: JUN 23, 2023@13:08:41 AUTHOR: ONEAL POLANCO EXP COSIGNER: URGENCY: STATUS: COMPLETED The patient gives a history of having received a Tdap booster in the past. Documented: TDAP Historical Date Administered: Oct 22, 2016 Series: (None selected) Outside Location: [facility] Information Source: FROM OTHER REGISTRY Comment: from ALLEN /ronald/ ONEAL POLANCO Signed: 06/23/2023 13:09 ONEAL POLANCO [facility] Jun 23, 2023 01:00 PM PREVENTIVE MEDICINE RISK ASSESSMENT SCREENING NOTE: LOCAL TITLE: Preventive Health [address] STANDARD TITLE: PREVENTIVE MEDICINE RISK ASSESSMENT SCREENING NO DATE OF NOTE: JUN 23, 2023@13:00 ENTRY DATE: JUN 23, 2023@13:00:07 AUTHOR: ONEAL POLANCO EXP COSIGNER: URGENCY: STATUS: COMPLETED Preventive Health [address] Has ADDENDA Clinical Reminders: Vitals: Height 71 in [180.3 cm) Weight 174 lb (79.1 kg) Pain 0 BP 123/60 Pulse 75 Temperature 98.3 F (36.8 C) Respiratory Rate 18 TBI Screening: 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 1. The experienced the following events during deployment: Patient denies experiencing any TBI related events during deployment. Negative Screen Homelessness/Food Insecurity Screen: In the past 2 months, have you been living in stable housing that you own, rent, or stay in as part of a household? Yes - Living in stable housing. Are you worried or concerned that in the next 2 months you may NOT have stable housing that you own, rent, or stay in as part of a household? No - Not worried about housing near future The reports the following: Within the past 12 months, you worried whether your food would run out before you got money to buy more. Never true Within the past 12 months, the food you bought just didn't last and you didn't have money to get more. Never true Benjamin Skin Risk Assessment: No impairment or abnormality in sensory perception, moisture, activity, mobility, nutrition, or friction. Emotional Health Screening (Nurse): The Overgaard denies any worry or stress in their life at this time. Pain Education: Pain Education The patient &/or family received the Pain Management education handout and questions were answered. The patient &/or family are encouraged to alert the provider and team of any pain or any change in pain. Advance Directive Screening: MEDICAL FORMS SCREENING: Do you have an Advance Directive (DPAHC or Living Will) or a Mental Health Advance Directive on file with us or a copy to give to us today? The patient indicates that they do not have an Advance Directive. Overgaard does not wish to discuss further with a health care provider at this time. No Family History Recorded: No first degree relatives with diabetes, hypertension, breast cancer, colon cancer, prostate cancer, alcohol abuse, depression, ischemic heart disease, Acute ME or sudden in a female relative prior to age 65 or in a male relative prior to age 55, or coronary artery disease prior to age 46. Barriers to Education Not Recorded: The patient has no noted or self-perceived barriers to learning. The patient is ready to learn and is receptive. Nutrition Screening: Most recent measurements: No data available for: WEIGHT Ht. BMI BMI not available without height Medication Inventory: Does the VA medication list below reflect EXACTLY what the patient and/or caregiver state the patient is taking (including non-VA prescriptions, over the counter medications, vitamins and herbal supplements)? Unable to review with patient/caregiver due to the following reason: -Other: deferred Allergies: No Allergy Assessment Allergies/ADRs (Tool #5) FACILITY ALLERGY/ADR -------- No Remote Allergy/ADR Data available for this patient [facility] No Allergy Assessment Completed Med [facility] (Tool #1) INCLUDED IN THIS LIST: Alphabetical list of active outpatient prescriptions dispensed from this VA (local) and dispensed from another VA or DoD facility (remote) as well as inpatient orders (local pending and active), local clinic medications, locally documented non-VA medications, and local prescriptions that have or been discontinued in the past 90 days. Non-VA Meds Last Documented On: Data not found NOTE The display of VA prescriptions dispensed from another VA or DoD facility (remote) is limited to active outpatient prescription entries matched to National Drug File at the originating site and may not include some items such as investigational drugs, compounds, etc. NOT INCLUDED IN THIS LIST: Medications self-entered by the patient into personal health records (i.e. [employer]) are NOT included in this list. Non-VA medications documented outside this [place], remote inpatient orders (regardless of status) and remote clinic medications are NOT included in this list. The patient and provider must always discuss medications the patient is taking, regardless of where the medication was dispensed or obtained. 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 /caregiver believes the Overgaard was exposed to the following while serving in the Armed Forces: Other exposures: Comment: loud noises Overgaard/caregiver was made aware of educational resources and printed information was offered and provided if desired. Health/Medical Questions All patients who report a health/medical concern will receive follow- up from a clinician. For urgent or emergent concerns, they were advised to follow local facility policy. Benefits/Claims Questions /caregiver was informed of local point of contact. Contact information for local resources: Toxic Exposure Screening ([facility]) Navigators: AURELIA Dasilva, EMPLOYMENT ADJUDICATOR Toxic Exposure Screening Follow-Up reminder is needed. Name of person notified: Dr Logan /ronald/ ONEAL POLANCO Signed: 06/23/2023 13:04 06/23/2023 ADDENDUM STATUS: COMPLETED Clinical Reminders: COVID-19 Immunization: Defer vaccine, reassess in 3 months Reason: declined Influenza Immunization: The patient declines to receive the recommended dose of seasonal influenza vaccine. Immunization: INFLUENZA, UNSPECIFIED FORMULATION Refusal Reason: PATIENT DECISION Patient refuses all immunization(s) in the FLU group Date Documented: 06/23/23 13:07 Human Papillomavirus (HPV): The patient declines to receive the recommended dose of HPV vaccine. Immunization: HPV9 Refusal Reason: PATIENT DECISION Patient refuses all immunization(s) in the HPV group Date Documented: 06/23/23 13:08 /luis POLANCO Signed: 06/23/2023 13:08 ONEAL POLANCO [facility]
[2024-05-12] MEDS: Acetaminophen 325 MG TABLET 975 MG PO (20:28)
[2024-05-12] MEDS: oxyCODONE HCl Immed Release 5 MG TABLET PO (20:28)
[2024-05-12] MEDS: Ibuprofen 600 MG TABLET PO (20:30)
--- NOTE | 2024-05-12 20:37 | MHC.EDTECH ---
Sling and swath applied, patient tolerated fair with some discomfort. Provider aware.
[2024-05-12 20:38] VITALS: BP 147/87; PULSE 92; RESP 19; TEMP 36.6; O2SAT 98
== END 2024-05-12 20:39 | disposition home or self-care (01) ==
PROVIDERS: Emergency Provider Emergency Medicine
DX: S43.004A Unspecified dislocation of right shoulder joint, initial encounter (principal); M25.511 Pain in right shoulder; X58.XXXA Exposure to other specified factors, initial encounter; Y93.23 Activity, snow (alpine) (downhill) skiing, snowboarding, sledding, tobogganing and snow tubing; Y92.828 Other wilderness area as the place of occurrence of the external cause; Y99.8 Other external cause status
CPT/HCPCS: 73030; 99283

== ENCOUNTER → 2024-05-12 16:56 | Outpatient (BNV) | payer SELFPAY | PROVIDERS: Visit Provider Specialist | DX: S43.121A Dislocation of right acromioclavicular joint, 100%-200% displacement, initial encounter (principal) | CPT/HCPCS: 73030 ==

== ENCOUNTER 2024-05-26 11:05 | Outpatient (AMB) | payer OTHER, SELFPAY ==
--- NOTE | 2024-05-26 11:06 | MHC.OFFVIS ---
Vital Signs 05/26/24 11:11 Height 5 ft 11 in Weight 171 lb BMI 23.8 Intake Visit Reasons: New Pt - right shoulder injury, DOI? Intake Note: Issac is a 24 year old right hand dominant male who presents today as a new patient for a evaluation on his right shoulder injury, DOI 05/12/24. Patient complains of right shoulder pain after falling while going fast downhill snowboarding. He was seen at [facility] where x-rays were taken and placed in an arm sling. Currently his pain presents with moving to fast or repetitive motion. Discomfort with sleeping at night, stating unable to sleep on his right arm. Denies numbness or tingling. Allergies No Known Allergies Allergy (Verified 05/26/24 11:09) HPI HPI New Pt - right shoulder injury, DOI?: Details: Patient presents to the office today for evaluation of right shoulder pain. He reports that on 05-12-24 he was snowboarding and fell landing onto the right shoulder. He is right-hand dominant. He felt immediate pain and presented to the emergency department where x-rays were obtained and he was found to have a right shoulder AC joint separation. He was instructed to follow up with orthopedics outpatient for further evaluation and treatment. [facility] Social History (Updated 05/26/24 @ 11:10 by JEANNE Reynaga) Patient Tobacco Use Status: Never used Tobacco Current occupational status: employed Current occupation: , right hand dominant Review of Systems Const All systems reviewed & are unremarkable except as noted in HPI and below Physical Exam Vital Signs: BMI result Body Mass Index 23.8 Const General: cooperative, healthy appearing and no acute distress Resp Effort & Inspection: normal respiratory effort and able to speak in complete sentences Cardio Rate: regular rate Peripheral pulses: Peripheral pulses 2+ throughout Skin Lesions: no lesions Rashes: no rashes Extrem Other: Right shoulder: Normal to inspection. No obvious deformity over the AC joint. No ecchymosis, erythema, or edema. Full shoulder ROM in all planes. Positive cross-body reach. Negative empty can. Negative drop arm. NVI. Assessment & Plan Assessment & Plan (1) Separation of right acromioclavicular joint, type 2: Code(s): S43.101A - Unspecified dislocation of right acromioclavicular joint, initial encounter Category: Medical Plan Mr. Fairbanks is a 24-year-old right hand dominant male who presents to the office today for evaluation of right shoulder pain. He reports that on 05-12-24 he was snowboarding and fell landing onto the right shoulder. He is right-hand dominant. He felt immediate pain and presented to the emergency department where x-rays were obtained and he was found to have a right shoulder AC joint separation. He was instructed to follow up with orthopedics outpatient for further evaluation and treatment. I discussed the case with Dr. Thompson who was available but did not see the patient me in the office today and cooperative treatment plan was created. Patient was referred to physical therapy and work restrictions were provided to the patient as he is in the . He will follow up in 6 weeks sooner if needed. X-rays of the right shoulder obtained on 05/12/2024 are significant for right AC joint separation Coding Level of Care Code New Pt Level 4 (03388) Diagnoses Separation of right acromioclavicular joint, type 2 S43.101A
[2024-05-26 11:11] VITALS: BMI 23.8
--- OUTSIDE RECORDS SUMMARY | 2024-05-26 14:00 | XMS_ITS | Continuity of Care Document ---
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 Services Fitting Monofocal Except For Aphakia Spectacles Services Fitting Monofocal Except For Aphakia 26150 2017 RUDDY FIGUEROA Determination Of Refractive State Determination Of Refractive State 18992 2017 RUDDY FIGUEROA Ophthalmological New Patient Start Comprehensive Care Ophthalmological New Patient Start Comprehensive Care 64070 2017 RUDDY FIGUEROA Physician Supervised Injection Intramuscular Physician Supervised Injection Intramuscular 80327 2016 DILAN HUI Varicella (Active) Second Vaccination Varicella (Active) Second Vaccination 34261 2016 TANESHA SANTA Immunization Administration By Injection, One Vaccine Immunization Administration By Injection, One Vaccine 31766 2016 TANESHA SANTA Vaccines Viral Measles, Mumps and Rubella, Live Vaccines Viral Measles, Mumps and Rubella, Live 06572 2016 TANESHA SANTA Immunization Administration By Injection, Each Additional Vaccine Immunization Administration By Injection, Each Additional Vaccine 18882 2016 TANESHA SANTA Vaccines Viral Polio, Inactivated Vaccines Viral Polio, Inactivated 46477 2016 ALIREZA LEBLANC Hepatitis A And Hepatitis B (Intramuscular Use) Adult Dosage Hepatitis A And Hepatitis B (Intramuscular Use) Adult Dosage 15244 2016 ALIREZA LEBLANC Prev Med Services Appropriate Empiric Antibiotic Prescribed Prev Med Services Appropriate Empiric Antibiotic Prescribed 4045F 2016 ALIREZA LEBLANC Patient education, not otherwise cla ified, non-physician provider, group, per se ion 2016 ALIVIA ESQUEDA Audiometry Group Testing Audiometry Group Testing 18758 2016 ALIVIA ESQUEDA Immunization Administration By Injection, Each Additional Vaccine Immunization Administration By Injection, Each Additional Vaccine 87308 2016 CAROLINE CASTILLO Vaccines Viral Measles, Mumps and Rubella, Live Vaccines Viral Measles, Mumps and Rubella, Live 38122 2016 CAROLINE CASTILLO Varicella (Active) First Vaccination Varicella (Active) First Vaccination 85099 2016 CAROLINE CASTILLO Spectacles Services Fitting Monofocal Except For Aphakia Spectacles Services Fitting Monofocal Except For Aphakia 80956 2016 MATTEO CARRENO Ophthalmological New Patient Start Intermediate Level Care Ophthalmological New Patient Start Intermediate Level Care 17847 2016 MATTEO CARRENO Immunization Administration By Injection, One Vaccine Immunization Administration By Injection, One Vaccine 35039 2016 ALIZA HAMMOND Skin Test Anergy Tuberculin Intradermal Skin Test Anergy Tuberculin Intradermal 23605 2016 ALIZA HAMMOND Pneumococcal Polysaccharide Vaccine 23 Valent Intramuscular Pneumococcal Polysaccharide Vaccine 23 Valent Intramuscular 10412 2016 ALIZA HAMMOND Meningococcal Polysaccharide Vaccine Meningococcal Polysaccharide Vaccine 88694 2016 ALIZA HAMMOND Tdap Vaccine Seven Years Of Age And Above Tdap Vaccine Seven Years Of Age And Above 25300 2016 ALIZA HAMMOND Hepatitis A And Hepatitis B (Intramuscular Use) Adult Dosage Hepatitis A And Hepatitis B (Intramuscular Use) Adult Dosage 73251 2016 ALIZA HAMMOND Vaccines Adenovirus Type 4 Live, For Oral Use Vaccines Adenovirus Type 4 Live, For Oral Use 02849 2016 ALIZA HAMMOND Vaccines Adenovirus Type 7 Live, For Oral Use Vaccines Adenovirus Type 7 Live, For Oral Use 94482 2016 ALIZA HAMMOND Physician Supervised Injection Intramuscular Antibiotic Physician Supervised Injection Intramuscular Antibiotic 44853 2016 ALIZA HAMMOND Preventive Medicine Screening Using Standardized Depre ion A e ment Tool Preventive Medicine Screening Using Standardized Depression Assessment Tool 1220F 2016 ALIZA HAMMOND Immunization Administration By Injection, Each Additional Vaccine Immunization Administration By Injection, Each Additional Vaccine 85101 2016 ALIZA HAMMOND Physician Supervised Injection Intramuscular Physician Supervised Injection Intramuscular 80772 2016 ALIZA HAMMOND V [facility] Venipuncture Venipuncture 91431 2016 ALIZA HAMMOND V [facility] Collection Of Capillary Blood Specimen Collection Of Capillary Blood Specimen 33592 2016 ALIZA HAMMOND Anthrax Vaccine For Subcutaneous Or Intramuscular Use Anthrax Vaccine For Subcutaneous Or Intramuscular Use 96781 NIRMAL LLOYD Anthrax; Series #: 2; 0.5 mL; IM; Left Arm; Mfg: [employer] [place]; Lot: [id number]; VIS given (Antonio: 07/29/2017). [facility] Immunization Administration By Injection, One Vaccine Immunization Administration By Injection, One Vaccine 03464 KENZIE LLOYDIS H [facility] Ophthalmological New Patient Start Comprehensive Care Ophthalmological New Patient Start Comprehensive Care 47703 KATY JORGENSEN Determination Of Refractive State Determination Of Refractive State 82893 KATY JORGENSEN Spectacles Services Fitting Monofocal Except For Aphakia Spectacles Services Fitting Monofocal Except For Aphakia 89452 KATY JORGENSEN Psychometric Neuropsych Testing Battery Admin By Computer Psychometric Neuropsych Testing Battery Admin By Computer 90493 CHAR WHITEHEAD [facility] Preventive Medicine Administration Of Health Risk Questionnaire Patient-Focused Preventive Medicine Administration Of Health Risk Questionnaire Patient-Focused 86545 BRIDGETTE MERA Psychometric Emotional / Behavioral A e ment Psychometric Emotional / Behavioral Assessment 26565 BRIDGETTE MERA Patient education, not otherwise cla ified, non-physician provider, group, per se DEL Merino Threshold Audiogram (Pure Tone) Automated Threshold Audiogram (Pure Tone) Automated [id number] DEL ROSE Social History Combined list of available smoking, tobacco, and other social history from [facility] of Defense and Veterans Affairs facilities. Social History Type Response Date Comment Sourc e Tobacco smoking status NHIS VA-TOBACCO FORMER USER 05/12/2023 [facility] History of tobacco use VA-TOBACCO QUIT < 1 YEAR 05/12/2023 [facility] Male 02/29/2020 Ambulatory [facility]acy Sexual Orientation Ambula tory Pharmacy Gender identity Ambulator y Pharmacy This section is an empty social history section. [facility] Assessment and Plan Combined list of future care activities from Department of Defense and Veterans Affairs facilities (e.g., assessment and plan notes, appointments, orders, and referrals). Additional future care activities may be listed in the Plan of Care section. 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 knee pain. Fit to separate. Pain in right hip will?order imaging to r/o?arthritis?or other bone abnormality Pain in right knee ?will?order imaging to r/o?arthritis?or other bone abnormality Extracted from:Title: Office Clinic Note - Termination Audiogram Author: DEL ROSE Date: 10/11/20 1.?EXAM, FORMAL OCCUPATIONAL HEALTH PROGRAM INCLUDING HEARING CONSERVATION PROGRAM, DUE TO TERMINATION OF OCCUPATIONAL WORKPLACE EXPOSURE 2.?Ear nose and throat disease treatment started 3.?Health education given Assessment: Patient?does not have an STS?in today's?audiogram.?No further testing required. Plan:? Termination Audiogram Complete. 05/26/2024 Ambulatory Pharmacy Plan of Care List of future care activities from Department of Veterans Affairs facilities. Additional future care activities may be listed in the Assessment and Plan section. Date/Time Care Activity Care Activity Detail Facili ty 06/23/2024 AMBULATORY - MEDICINE AMBULATORY - MEDIC[facility] Functional Status Combined list of recent functional and cognitive assessments recorded at [facility] Defense and [facility] (DC).VA Functional [place] Measurement (FIM) Scale: 1 = Total Assistance (Subject = 0% +), 2 = Maximal Assistance (Subject = 25% +), 3 = Moderate Assistance (Subject = 50% +), 4 = Minimal Assistance (Subject = 75% +), 5 = Supervision, 6 = Modified [place] (Device), 7 = Complete [place] (Timely, Safely). Assessment Date/Time Source Assessment Type Assessment Skill Assessment Score Assessment Details No data available for this section
== END 2024-05-26 11:44 | disposition home or self-care (01) ==
PROVIDERS: PCP Family Medicine; Visit Provider Physician Assistant
DX: S43.101A Unspecified dislocation of right acromioclavicular joint, initial encounter (principal)
CPT/HCPCS: 99203

== ENCOUNTER → 2024-05-26 11:05 | Outpatient (BNVA) | payer OTHER, SELFPAY | PROVIDERS: PCP Family Medicine; Visit Provider Physician Assistant | DX: S43.101A Unspecified dislocation of right acromioclavicular joint, initial encounter (principal) | CPT/HCPCS: 99202 ==

== ENCOUNTER 2024-07-05 10:50 | Outpatient (AMB) | payer OTHER, SELFPAY ==
--- NOTE | 2024-07-05 10:51 | MHC.OFFVIS ---
Vital Signs 07/05/24 10:55 Height 5 ft 11 in Weight 171 lb BMI 23.8 Handedness Right Intake Visit Reasons: OV - right shoulder pain, DOI 05/12/24 Intake Note: Issac is a 24 year old right hand dominant male who presents today for a follow up on his right shoulder pain, DOI 05/12/24. Patient states that his discomfort has been getting worse this past week. He has been working with PT, he is down to his last visit and would benefit with more sessions. Allergies No Known Allergies Allergy (Verified 07/05/24 10:52) HPI HPI OV - right shoulder pain, DOI 05/12/24: Details: Mr. Fairbanks is a 24-year-old right-hand dominant male who presents to the office today for routine follow-up of a right AC joint separation. Date of injury was on 05/12/24 after he fell while snowboarding. At his last appointment on 05/26/2024 the patient was referred to physical therapy. He has been attending physical therapy but has noticed that he is experiencing increased soreness and difficulty with certain motions. He works in the and has a very physical job. [facility] Social History Patient Tobacco Use Status: Never used Tobacco Current occupational status: employed Current occupation: , right hand dominant Review of Systems Const All systems reviewed & are unremarkable except as noted in HPI and below Physical Exam Vital Signs: BMI result Body Mass Index 23.8 Const General: cooperative, healthy appearing and no acute distress Resp Effort & Inspection: normal respiratory effort and able to speak in complete sentences Cardio Rate: regular rate Peripheral pulses: Peripheral pulses 2+ throughout Skin Lesions: no lesions Rashes: no rashes Extrem Other: Right shoulder: Normal to inspection. No obvious deformity over the AC joint. No ecchymosis, erythema, or edema. Full shoulder ROM in all planes. Positive cross-body reach. Negative empty can. Negative drop arm. NVI. Assessment & Plan Assessment & Plan (1) Separation of right acromioclavicular joint, type 2: Code(s): S43.101A - Unspecified dislocation of right acromioclavicular joint, initial encounter Category: Medical Plan Mr. Fairbanks is a 24-year-old right-hand dominant male who presents to the office today for routine follow-up of a right AC joint separation. Date of injury was on 05/12/24 after he fell while snowboarding. At his last appointment on 05/26/2024 the patient was referred to physical therapy. He has been attending physical therapy but has noticed that he is experiencing increased soreness and difficulty with certain motions. He works in the and has a very physical job. While in the office today, the patient has requested an MRI of the right shoulder to further evaluate the integrity of the shoulder and surrounding structures. I placed an order for this at this time. I would like for the patient to follow up with Dr. Thompson to discus surgical intervention for AC joint reconstruction versus continued conservative treatment. In the meantime, the patient will continue attending physical therapy and will follow up after the MRI is complete in 4 weeks, sooner if needed. Coding Level of Care Code Est Pt Level 3 (60571) Diagnoses Separation of right acromioclavicular joint, type 2 S43.101A
[2024-07-05 10:55] VITALS: BMI 23.8
--- OUTSIDE RECORDS SUMMARY | 2024-07-05 13:05 | XMS_ITS | Continuity of Care Document ---
Author Organization [facility] Address [address] [place] [address]- Care Team Providers Care Technology Program Manager Name Role Phone Not on Staff, PCP Primary Care Physician Unavail able [id number] Date(s): 06/02/24 - 07/02/24 [facility] [address] [address]- Encounter Type: Triage Allergies, Adverse Reactions, Alerts No Known Allergies Patient Care team information Care Team Personnel Name: Not on Staff, PCP Position: [facility] Physician (General Medicine) Member Role: PCP Insurance Providers Guarantor name: NA Health Plan Information #: 1 Payer: [employer] Member Number: NA Policy Number: NA Group Number: NA
--- OUTSIDE RECORDS SUMMARY | 2024-07-05 13:05 | XMS_ITS | Continuity of Care Document ---
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 2016 ALIZA HAMMOND Pneumococcal Polysaccharide Vaccine 23 Valent Intramuscular Pneumococcal Polysaccharide Vaccine 23 Valent Intramuscular 83467 2016 ALIZA HAMMOND Meningococcal Polysaccharide Vaccine Meningococcal Polysaccharide Vaccine 04410 2016 ALIZA HAMMOND Tdap Vaccine Seven Years Of Age And Above Tdap Vaccine Seven Years Of Age And Above 55274 2016 ALIZA HAMMOND Hepatitis A And Hepatitis B (Intramuscular Use) Adult Dosage Hepatitis A And Hepatitis B (Intramuscular Use) Adult Dosage 03130 2016 ALIZA HAMMOND Vaccines Adenovirus Type 4 Live, For Oral Use Vaccines Adenovirus Type 4 Live, For Oral Use 20853 2016 ALIZA HAMMOND Vaccines Adenovirus Type 7 Live, For Oral Use Vaccines Adenovirus Type 7 Live, For Oral Use 88289 2016 ALIZA HAMMOND Physician Supervised Injection Intramuscular Antibiotic Physician Supervised Injection Intramuscular Antibiotic 64206 2016 ALIZA HAMMOND Preventive Medicine Screening Using Standardized Depre ion A e ment Tool Preventive Medicine Screening Using Standardized Depression Assessment Tool 1220F 2016 ALIZA HAMMOND Immunization Administration By Injection, Each Additional Vaccine Immunization Administration By Injection, Each Additional Vaccine 44005 2016 ALIZA HAMMOND Physician Supervised Injection Intramuscular Physician Supervised Injection Intramuscular 54812 2016 ALIZA HAMMOND Venipuncture Venipuncture 04886 2016 ALIZA HAMMOND Collection Of Capillary Blood Specimen Collection Of Capillary Blood Specimen 28030 2016 ALIZA HAMMOND V [facility] Anthrax Vaccine For Subcutaneous Or Intramuscular Use Anthrax Vaccine For Subcutaneous Or Intramuscular Use 07523 GABINO NIRMAL H Anthrax; Series #: 2; 0.5 mL; IM; Left Arm; Mfg: [employer] Daniela; Lot: [id number]; VIS given (Antonio: 07/29/2017). [facility] Immunization Administration By Injection, One Vaccine Immunization Administration By Injection, One Vaccine 79903 GABINO NIRMAL Alli [facility] Ophthalmological New Patient Start Comprehensive Care Ophthalmological New Patient Start Comprehensive Care 18718 KATY JORGENSEN Determination Of Refractive State Determination Of Refractive State 99218 KATY JORGENSEN Spectacles Services Fitting Monofocal Except For Aphakia Spectacles Services Fitting Monofocal Except For Aphakia 75259 KATY JORGENSEN Psychometric Neuropsych Testing Battery Admin By Computer Psychometric Neuropsych Testing Battery Admin By Computer 61935 CHAR WHITEHEAD [facility] Preventive Medicine Administration Of Health Risk Questionnaire Patient-Focused Preventive Medicine Administration Of Health Risk Questionnaire Patient-Focused 76742 BRIDGETTE MERA [facility] Psychometric Emotional / Behavioral A e ment Psychometric Emotional / Behavioral Assessment 23252 [facility] BRIDGETTE LEIVA [facility] Patient education, not otherwise cla ified, non-physician provider, group, per se DEL Merino Threshold Audiogram (Pure Tone) Automated Threshold Audiogram (Pure Tone) Automated 0208T DEL ROSE Social History Combined list of available smoking, tobacco, and other social history from Department of Defense and Veterans Affairs facilities. Social History Type Response Date Comment Sourc e Tobacco smoking status NHIS [facility]ACCO [facility] History of tobacco use DC-TOBACCO QUIT < 1 YEAR 05[facility]12[facility] Sex Representation Male 02/29/2020 Unknow n Organization Sexual Orientation Ambula tory Pharmacy Gender identity Ambulator y Pharmacy This section is an empty social history section. [facility] Assessment and Plan Combined list of future [...] Author: MATTEO POLLACK Date: 10/17/20 EXAM, OCCUPATIONAL, FCI OR SEPARATION FROM UNIFORMED SERVICE, SHORT ?chronic [...] further testing required. Plan:? Termination Audiogram Complete. 07/05/[address] [place] [address] Assessment and Plan Extracted from:Title : Education Note Author: GLADYS CHADWICK Date: 12/23/22 Extracted from:Title: Office Clinic Note Author: MATTEO POLLACK Date: 10/17/20 EXAM, OCCUPATIONAL, FCI OR SEPARATION FROM UNIFORMNearpod SERVICE, SHORT ?chronic R hip and R. [...] further testing required. Plan:? Termination Audiogram Complete. 07/05/[address] [place] [address] [address] [facility] Functional Status Combined list of recent functional and cognitive assessments recorded at Department of Defense and Veterans Affairs (VA).VA Functional Brohman Measurement (FIM) Scale: 1 = Total Assistance (Subject = 0% +), 2 = Maximal Assistance (Subject = 25% +), 3 = Moderate Assistance (Subject = 50% +), 4 = Minimal Assistance (Subject = 75% +), 5 = Supervision, 6 = Modified Brohman (Device), 7 = Complete Brohman (Timely, Safely). Assessment Date/Time Source Assessment Type Assessment Skill Assessment Score Assessment Details No data available for this section
--- OUTSIDE RECORDS SUMMARY | 2024-07-05 13:05 | XMS_ITS | Continuity of Care Document ---
Author Organization [facility] Address [address] [place] [address]- Care Team Providers Care Digital Proofing And Platemaker Name Role Phone Not on Staff, PCP Primary Care Physician Unavail able [id number] Date(s): 05/16/24 - 06/15/24 [facility] [address] [address]- Encounter Type: Triage Allergies, Adverse Reactions, Alerts No Known Allergies Patient Care team information Care Team Personnel Name: Not on Staff, PCP Position: [facility] Physician (General Medicine) Member Role: PCP Insurance Providers Guarantor name: NA Health Plan Information #: 1 Payer: LESLIE BARTLETT Member Number: NA Policy Number: NA Group Number: NA
--- OUTSIDE RECORDS SUMMARY | 2024-07-05 13:05 | XMS_ITS | Continuity of Care Document ---
Author Organization [facility] Address [address] [place] [address]- Care Team Providers Care Correctional Officer Lieutenant Name Role Phone Not on Staff, PCP Primary Care Physician Unavail able [id number] Date(s): 05/23/24 - 06/22/24 [facility] Adult [address] [address]- Attending Physician: Neel Tom Admitting Physician: Neel Tom Referring Physician: Neel Tom Encounter Type: Triage Allergies, Adverse Reactions, Alerts No Known Allergies Patient Care team information Care Team Personnel Name: Not on Staff, PCP Position: S Physician (General Medicine) Member Role: PCP Insurance Providers Guarantor name: NA Health Plan Information #: 1 Payer: PRIME Member Number: NA Policy Number: NA Group Number: NA
== END 2024-07-05 11:32 | disposition home or self-care (01) ==
PROVIDERS: PCP Family Medicine; Visit Provider Physician Assistant
DX: S43.101A Unspecified dislocation of right acromioclavicular joint, initial encounter (principal)
CPT/HCPCS: 99213

== ENCOUNTER → 2024-07-05 10:50 | Outpatient (BNVA) | payer OTHER, SELFPAY | PROVIDERS: PCP Family Medicine; Visit Provider Physician Assistant | DX: S43.101D Unspecified dislocation of right acromioclavicular joint, subsequent encounter (principal); X58.XXXD Exposure to other specified factors, subsequent encounter | CPT/HCPCS: 99212 ==

== ENCOUNTER 2024-07-29 16:45 | Outpatient (REF) | payer OTHER, SELFPAY ==
--- NOTE | ~2024-07-29 | MR_ITS ---
EXAMINATION: MRI RIGHT SHOULDER WITHOUT CONTRAST HISTORY: S43.101A - Unspecified dislocation of right acromioclavicular joint COMPARISON: Correlation is made to plain films of the right shoulder dated 05/12/2024. TECHNIQUE: Coronal T1, T2, and fat suppressed T2, axial fat suppressed proton density, and sagittal T2 weighted MR images of the right shoulder were obtained. FINDINGS: Bone Marrow: There is mild bone marrow edema involving the acromion and distal clavicle. Joint effusion: There is no glenohumeral joint effusion. Glenohumeral joint: The glenohumeral joint is maintained. AC joint: There is slight elevation of the distal clavicle with respect to the acromion. This is less prominent than on the plain films from 05/12/2024. Supraspinatus muscle/tendon: The supraspinatous tendon is intact. Normal muscle bulk. Infraspinatus muscle/tendon: The infraspinatus tendon is intact. Normal muscle bulk. Teres minor muscle/tendon: The teres minor tendon is intact. Normal muscle bulk. Subscapularis muscle/tendon: The subscapularis tendon is intact. Normal muscle bulk. Biceps tendon: The biceps tendon is intact and normally located. Glenoid labrum: The glenoid labrum is grossly unremarkable in appearance, although evaluation is limited by lack of a joint effusion. Other findings: The coracoclavicular ligaments are not identified, consistent with rupture. MR/MR shoulder RT wo con IMPRESSION: Findings consistent with a type III acromioclavicular joint injury. Electronically signed by: Vimal Broderick MD 08/01/2024 10:17 AM EDT
--- OUTSIDE RECORDS SUMMARY | 2024-07-29 17:37 | XMS_ITS | Continuity of Care Document ---
Author Organization [facility] Address [address] [place] [address]- Care Team Providers Care Digital Printer Operator Name Role Phone Not on Staff, PCP Primary Care Physician Unavail able Encounter [facility] [id number] Date(s): 06/14/24 - 07/14/24 [facility] Adult [address] [address]- Encounter Type: Triage Allergies, Adverse Reactions, Alerts No Known Allergies Patient Care team information Care Team Personnel Name: Not on Staff, PCP Position: [facility] Physician (General Medicine) Member Role: PCP Insurance Providers Guarantor name: NA Health Plan Information #: 1 Payer: LESLIE PRIME Member Number: NA Policy Number: NA Group Number: NA
--- OUTSIDE RECORDS SUMMARY | 2024-07-29 17:37 | XMS_ITS | Continuity of Care Document ---
Author Name [facility] Organization [facility] Care Team Providers Care Field Artillery Senior Sergeant Name Role Phone [facility]-[place] Unavailable Unavailable Immunizations Combined list of available immunizations from the Department of Defense and Veterans Affairs facilities. Immunization Series Date Given Administered By Site Reaction Lot Number CVX Code Drug [employer] Spacelift Status Comments Source anthrax vaccine 2019 UNK 24 Emergent Bios[employer] complet ed anthrax vaccine 05/31/19 Given Ambulat ory Pharmac y influenza, injectable, quadrivalent- pf 2018 UNK 150 Seqirus complet ed influenza , injectabl e, quadrival ent-pf 03/25/19 Given Ambulat ory Pharmac y anthrax vaccine 2018 zzLef t Arm [id number] [employer] complet ed anthrax vaccine 12/14/18 Given Ambulat ory Pharmac y typhoid Vi capsular polysaccharid e vac 2018 zzRig ht Arm [id number] sanofi pasteur complet ed typhoid Vi capsular polysacch aride vac 11/04/18 Given Ambulat ory Pharmac y anthrax vaccine 2018 zzLef t Arm [id number] 24 [employer] complet ed anthrax vaccine 11/04/18 Given Ambulat ory Pharmac y influenza, injectable, quadrivalent- pf 2018 [id number] 150 Seqirus complet ed influenza , injectabl e, quadrival ent-pf 06/21/18 Given Ambulat ory Pharmac y influenza, injectable, quadrivalent- pf 2017 zzLef t Arm [id number] 150 Seqirus complet ed influenza , injectabl e, quadrival ent-pf 03/05/18 Given Ambulat ory Pharmac y hepatitis A-hepatitis B vaccine 2017 zzLef t Arm [id number] 104 GlaxoSmithKli ne complet ed hepatitis A-hepatit is B vaccine 02/10/18 Given Ambulat ory Pharmac y hepatitis A-hepatitis B vaccine 2017 [id number] GlaxoSmithKli ne complet ed hepatitis A-hepatit is B vaccine 09/08/17 Given Ambulat ory Pharmac y influenza virus vaccine, inactivated 2017 [id number] GlaxoSmithKli ne complet ed influenza virus vaccine, inactivat ed 09/08/17 Given Ambulat ory Pharmac y hepatitis A-hepatitis B vaccine 2016 zzLef t Arm [id number] 104 GlaxoSmithKli ne complet ed hepatitis A-hepatit is B vaccine 12/22/16 Given Ambulat ory Pharmac y varicella virus vaccine 2016 [id number] Merck & Company Inc complet ed varicella virus vaccine 12/22/16 Given Ambulat ory Pharmac y poliovirus vaccine, inactivated 2016 zzRig ht Arm [id number] 10 sanofi pasteur complet ed polioviru s vaccine, inactivat ed 12/22/16 Given Ambulat ory Pharmac y measles/mumps /rubella virus vaccine 2016 [id number] Merck & Company Inc complet ed measles/m umps/rube lla virus vaccine 12/22/16 Given Ambulat ory Pharmac y poliovirus vaccine, inactivated 2016 zzRig ht Thigh [id number] 10 sanofi pasteur complet ed polioviru s vaccine, inactivat ed 11/21/16 Given Ambulat ory Pharmac y hepatitis A-hepatitis B vaccine 2016 zzRig ht Thigh [id number] 104 GlaxoSmithKli ne complet ed hepatitis A-hepatit is B vaccine 11/21/16 Given Ambulat ory Pharmac y varicella virus vaccine 2016 zzLef t Arm [id number] 21 GlaxoSmithKli ne complet ed varicella virus vaccine 10/30/16 Given Ambulat ory Pharmac y measles/mumps /rubella virus vaccine 2016 zzRig ht Arm [id number] 03 Merck & Company Inc complet ed measles/m umps/rube lla virus vaccine 10/30/16 Given Ambulat ory Pharmac y tetanus, diphtheria, acellular pertu is 2016 zzRig ht Arm [id number] 115 GlaxoSmithKli ne complet ed tetanus, diphtheri a, acellular pertussis 10/22/16 Given Ambulat ory Pharmac y tuberculin purified protein derivative 2016 zzLef t Arm [id number] 96 sanofi pasteur complet ed tuberculi n purified protein derivativ e 10/22/16 Given Ambulat ory Pharmac y influenza, injectable, quadrivalent 2016 zzRig ht Arm [id number] 158 Seqirus complet ed influenza , injectabl e, quadrival ent 10/22/16 Given Ambulat ory Pharmac y adenovirus vaccine, live 2016 [id number] 143 Teva Pharmaceutica ls complet ed adenoviru s vaccine, live 10/22/16 Given Ambulat ory Pharmac y meningococcal A,C,Y,W-135 (MCV4P) 2016 zzLef t Arm [id number] 114 sanofi pasteur complet ed meningoco ccal A,C,Y,W-1 35 (MCV4P) 10/22/16 Given Ambulat ory Pharmac y pneumococcal polysaccharid e, 23 valent 2016 zzRig ht Arm [id number] 33 Merck & Company Inc complet ed pneumococ sherley polysacch aride, 23 valent 10/22/16 Given Ambulat ory Pharmac y hepatitis A-hepatitis B vaccine 2016 zzLef t Arm [id number] L'ArcoBalenoi ne complet ed hepatitis A-hepatit is B vaccine 10/22/16 Given Ambulat ory Pharmac y Results Combined list of recent chemistry, hematology and other laboratory results from Department of Defense and Veterans Affairs, ranging from 15 months to all on record, depending upon the facility. Order Name Results Value Reference Range Date Interpretation Specimen Comments Source Infectiou s Disease Source of Test.LC Phys Exam (07/23/20 9:46 AM) 07/23 N -[facility] Infectiou s Disease HIV-1/2 AG/AB 4G CDD LC NEGATIVE 07/23 Result Comment: Performed At: 1 [facility] [address] [facility] [address] [place] [address] THANIA CAMILA PHD Ph:[id number] Signs Combined list of inpatient and outpatient Vital Signs from Department of Defense and Veterans Affairs, ranging from 12 months to all on record, depending upon the facility. Vital Sign Value Date Comments Source Systolic Blood Pressure 126 mm[Hg] 10/18/19 21 20:45:00 [facility] Diastolic Blood Pressure 61 mm[Hg] 021 20:45:00 [facility] Peripheral Pulse Rate 76 bpm 10/17/2020 20:45:00 [facility] Blood Pressure Manual Automatic 10/17/2020 20:45:00 [facility] Mean Arterial Pressure, Calc 83 mm[Hg] 10/17/2020 20:45:00 [facility] BP Site Right arm 10/17/2020 20:45:00 [facility] Temperature Oral 36.8 Anupama 10/17/2020 20:45:00 1408-[facility] 43 [facility] Respiratory Rate 14 br/min 10/17/2020 20:45:00 1408-[facility] 43 [facility] Peripheral Pulse Rate 85 bpm 12/23/2022 14:41:00 88C-[facility] Systolic Blood Pressure 104 mm[Hg] 12/24/19 23 14:41:00 8853-[facility] Diastolic Blood Pressure 73 mm[Hg] 023 14:41:00 8[facility] Procedures Combined list of: 1) Procedures from Department of Veterans Affairs facilities [facility], not all VA non-surgical procedures are included; 2) All procedures from the Department of [facility] facilities. Procedure Procedure Type Code Date Perfomer Comments Sourc e No data available for this section Ambulatory P harmacy Social History Combined list of available smoking, tobacco, and other social history from Department of Defense and Veterans Affairs facilities. Social History Type Response Date Comment Sourc e Sex Representation Male 02/29/2020 Unknow n Organization Sexual Orientation Ambula tory Pharmacy Gender identity Ambulator y Pharmacy Assessment and Plan Combined list of future [...] Author: MATTEO POLLACK Date: 10/17/20 EXAM, OCCUPATIONAL, RESIDENTIAL OR SEPARATION FROM triptap SERVICE, SHORT ?chronic R hip and R. [...] further testing required. Plan:? Termination Audiogram Complete. 07/29/2024 [facility] Assessment and Plan Extracted from:Title : Education Note Author: GLADYS CHADWICK Date: 12/23/22 Extracted from:Title: Office Clinic Note Author: MATTEO POLLACK Date: 10/17/20 EXAM, OCCUPATIONAL, RESIDENTIAL OR SEPARATION FROM [employer] SERVICE, SHORT ?chronic R hip and R. [...] further testing required. Plan:? Termination Audiogram Complete. 07/29/2024 [facility] Functional Status Combined list of recent functional and cognitive assessments recorded at Department of Defense and Veterans Affairs (VA).VA Functional Claiborne Measurement (FIM) Scale: 1 = Total Assistance (Subject = 0% +), 2 = Maximal Assistance (Subject = 25% +), 3 = Moderate Assistance (Subject = 50% +), 4 = Minimal Assistance (Subject = 75% +), 5 = Supervision, 6 = Modified Claiborne (Device), 7 = Complete Cla[place]orne (Timely, Safely). Assessment Date/Time Source Assessment Type Assessment Skill Assessment Score Assessment Details No data available for this section
== END 2024-07-29 16:46 | disposition home or self-care (01) ==
LOC: HO.MRI 16:45
PROVIDERS: PCP Family Medicine; Visit Provider Physician Assistant
DX: S43.101A Unspecified dislocation of right acromioclavicular joint, initial encounter (principal)
CPT/HCPCS: 73221

== ENCOUNTER → 2024-07-29 16:52 | Outpatient (BNV) | payer OTHER, SELFPAY | PROVIDERS: PCP Family Medicine; Visit Provider Radiology Diagnostic Radiology | DX: S43.101A Unspecified dislocation of right acromioclavicular joint, initial encounter (principal) | CPT/HCPCS: 73221 ==

== ENCOUNTER 2024-08-08 14:44 | Outpatient (AMB) | payer OTHER, SELFPAY ==
--- NOTE | 2024-08-08 14:46 | MHC.OFFVIS ---
Intake Visit Reasons: OV - Right Shoulder MRI Review Intake Note: Issac is a 24 year old right hand dominant male who presents today for an MRI review. Patient fell while snowboarding on 05/12/2024, where he sustained a Right AC Joint Separtation. He was last seen with Anat Johnson who referred patient to discuss continued surgical treatment vs surgical intervention. [employer] Required: No Allergies No Known Allergies Allergy (Verified 08/08/24 14:48) Medication List - Last Reconciled 08/08/24 by Yadira Powell RN No Known Home Meds HPI HPI OV - Right Shoulder MRI Review: Details: 24-year-old who dislocated his right AC joint 3 months ago while snowboarding. Comes in today for MRI review. MRI confirms a grade 3 AC joint injury. Patient denies pain. He states he is returning to normal activity. [facility] Social History Patient Tobacco Use Status: Never used Tobacco Current occupational status: employed Current occupation: , right hand dominant Physical Exam Extrem Other: Full range of motion right shoulder Mild prominence of the distal clavicle but less impressive than imaging suggests Results Reviewed Results Reviewed: I personally reviewed the MR images. Findings consistent with a type III acromioclavicular joint injury. Assessment & Plan Assessment & Plan (1) AC separation, type 3: Code(s): S43.109A - Unspecified dislocation of unspecified acromioclavicular joint, initial encounter Category: Medical Plan: This is a 24-year-old with an AC joint separation type 3. Clinically he is stable and I do not recommend surgical intervention. I discussed this with him. I also discussed the risks of both nonsurgical and surgical treatment. If he has a deterioration in his progress her status he will return to see me. Coding Level of Care Code Est Pt Level 4 (62773) Diagnoses AC separation, type 3 S43.109A
--- OUTSIDE RECORDS SUMMARY | 2024-08-08 16:40 | XMS_ITS | Continuity of Care Document ---
Author Name [facility] Organization [facility] Care Team Providers Care Global Lead Name Role Phone [facility] Unavailable Unavailable Problems Combined list of problems from Department of [facility] and [facility] facilities. It does not include entries that were removed or entered in error. Problem Status Onset Date Problem Type Date of Resolution Comments Source Exposure to potentially hazardous substance ([facility] [id number]) Active Condition Aug 23 4 Entered By: ARTEM LERMA Comment: Per CHAD Reminder [facility] Medical examinations/rep orts status Active Condition [facility] Diagnosis: ICD-10-CM Z71.89 Other specified counseling Active Diagnosis [facility] Diagnosis: ICD-10-CM Z77.29 Contact with and exposure to other hazardous substances Active Diagnosis [facility] Diagnosis: ICD-10-CM Z71.9 Counseling, unspecified Active Diagnosis [facility] Immunizations Combined list of available immunizations from the Department of [facility] and [facility] facilities. 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 Source COVID-19 (Dynamic Social Network Analysis), VECTOR-NR, RS-AD26, PF, 0.5 ML 1 2021 212 complet ed [place] anthrax vaccine 2019 UNK 24 Emergent [employer] complet ed anthrax vaccine 05/31/19 Given Ambulat ory Pharmac y influenza, injectable, quadrivalent- pf 2018 UNK 150 Seqirus complet ed influenza , injectabl e, quadrival ent-pf 03/25/19 Given Ambulat ory Pharmac y anthrax vaccine 2018 zzLef t Arm [id number] [employer] complet ed anthrax vaccine 12/14/18 Given Ambulat ory Pharmac y typhoid Vi capsular polysaccharid e vac 2018 zzRig ht Arm [id number] 101 sanofi pasteur complet ed typhoid Vi capsular polysacch aride vac 11/04/18 Given Ambulat ory Pharmac y anthrax vaccine 2018 zzLef t Arm [id number] 24 [employer] complet ed anthrax vaccine 11/04/18 Given Ambulat ory Pharmac y influenza, injectable, quadrivalent- pf 2018 [id number] 150 Seqirus complet ed influenza , injectabl e, quadrival ent-pf 06/21/18 Given Ambulat ory Pharmac y influenza, injectable, quadrivalent- pf 2017 zzLef t Arm [id number] 150 Seqirus complet ed influenza , [...] ory Pharmac y varicella virus vaccine 2016 [id number] Merck [employer] Company Inc complet ed varicella virus vaccine 12/22/16 Given Ambulat ory Pharmac y poliovirus vaccine, inactivated 2016 Jeri Arm [id number] 10 sanofi pasteur complet ed polioviru s vaccine, inactivat ed 12/22/16 Given Ambulat ory Pharmac y measles/mumps /rubella virus vaccine 2016 [id number] Merck [employer] Company Inc complet ed measles/m umps/rube lla virus vaccine 12/22/16 Given Ambulat ory Pharmac y poliovirus vaccine, inactivated 2016 Jeri Thigh [id number] 10 sanofi pasteur complet ed polioviru s vaccine, inactivat ed 11/21/16 Given Ambulat ory Pharmac y hepatitis A-hepatitis B vaccine 2016 [facility] Thigh [id number] GlaxoSmithKli ne complet ed hepatitis A-hepatit is B vaccine 11/21/16 Given Ambulat ory Pharmac y varicella virus vaccine 2016 [facility] Arm [id number] 21 GlaxoSmithKli ne complet ed varicella virus vaccine 10/30/16 Given Ambulat ory Pharmac y measles/mumps /rubella virus vaccine 2016 [facility] Arm [id number] Merck & Company Inc complet ed measles/m umps/rube lla virus vaccine 10/30/16 Given Ambulat ory Pharmac y tetanus, diphtheria, acellular pertu is 2016 [facility] Arm [id number] 115 GlaxoSmithKli ne complet ed tetanus, diphtheri a, acellular pertussis 10/22/16 Given Ambulat ory Pharmac y tuberculin purified protein derivative 2016 [facility] Arm [id number] 96 sanofi pasteur complet ed tuberculi n purified protein derivativ e 10/22/16 Given Ambulat ory Pharmac y influenza, injectable, quadrivalent 2016 [facility] Arm [id number] 158 Seqirus complet ed influenza , injectabl e, quadrival ent 10/22/16 Given Ambulat ory Pharmac y adenovirus vaccine, live 2016 [id number] 143 Teva Pharmaceutica ls complet ed adenoviru s vaccine, live 10/22/16 Given Ambulat ory Pharmac y meningococcal A,C,Y,W-135 (MCV4P) 2016 [facility] [id number] 114 sanofi pasteur complet ed meningoco ccal A,C,Y,W-1 35 (MCV4P) 10/22/16 Given Ambulat ory Pharmac y pneumococcal polysaccharid e, 23 valent 2016 [facility] Arm [id number] 33 Merck & Company Inc complet ed pneumococ sherley polysacch aride, 23 valent 10/22/16 Given Ambulat ory Pharmac y hepatitis A-hepatitis B vaccine 2016 [facility] [id number] GlaxoSmithKli ne complet ed hepatitis A-hepatit is B vaccine 10/22/16 Given Ambulat ory Pharmac y TDAP 2016 115 complet ed [facility] MENINGOCOCCAL MCV4, UNSPECIFIED FORMULATION 1 2011 147 complet ed [facility] TDAP 2011 115 complet ed [facility] DTAP 5 2002 20 complet ed [facility] IPV 4 2002 10 complet ed [facility] MMR 1 2002 03 complet ed [facility] HEP A, PED/ADOL, 2 DOSE 1 2001 83 complet ed [facility] DTAP 4 1999 20 complet ed [facility] HEP B, ADOLESCENT OR PEDIATRIC 3 1999 08 complet ed [facility] MMR 1998 03 complet ed [facility] DTAP 3 1998 20 complet ed [facility] HEP B, ADOLESCENT OR PEDIATRIC 2 1998 08 complet ed [facility] HIB, UNSPECIFIED FORMULATION 3 1998 17 complet ed [facility] IPV 3 1998 10 complet ed [facility] VARICELLA 1 1998 21 complet ed [facility] HEP B, ADOLESCENT OR PEDIATRIC 1 1998 08 complet ed [facility] HIB, UNSPECIFIED FORMULATION 2 1998 17 complet ed [facility] IPV 2 1998 10 complet ed [facility] DTAP 2 1998 20 complet ed [facility] HIB, UNSPECIFIED FORMULATION 1 1998 17 complet ed [facility] DTAP 1 1998 20 complet ed [facility] IPV 1 1998 10 complet ed [facility] Results Combined list of recent chemistry, hematology and other laboratory results from Department of Defense and Veterans Affairs, ranging from 15 months to all on record, depending upon the facility. Order Name Results Value Reference Range Date Interpretation Specimen Comments Source Infectiou s Disease Source of Test.LC Phys Exam (07/23/20 9:46 AM) 07/23 N 0024A-Claude al [facility] Infectiou s Disease HIV-1/2 AG/AB 4G CDD LC NEGATIVE 07/23 Result Comment: Performed At: 1 [facility] [address] [place] [address] THANIA CAMILA PHD Ph:[phone] within [facility] Vital Signs Combined list of inpatient and outpatient Vital Signs from Department of Defense and Veterans Affairs, ranging from 12 months to all on record, depending upon the facility. Vital Sign Value Date Comments Source Systolic Blood Pressure 126 mm[Hg] 10/18/19 21 20:45:00 [facility] Diastolic Blood Pressure 61 mm[Hg] 021 20:45:00 [facility] Peripheral Pulse Rate 76 bpm 10/17/2020 20:45:[address] Blood Pressure Manual Automatic 10/17/2020 20:45:[address] Mean Arterial Pressure, Calc 83 mm[Hg] 10/17/2020 20:45:00 [facility] BP Site Right arm 10/17/2020 20:45:00 [facility] [address] [facility] Temperature Oral 36.8 Anupama 10/17/2020 20:45:00 [facility] [address] [facility] Respiratory Rate 14 br/min 10/17/2020 20:45:00 [facility] Peripheral Pulse Rate 85 bpm 12/23/2022 14:41:[address] [place] [address] Systolic Blood Pressure 104 mm[Hg] 12/24/19 23 14:41:[address] [place] [address] Diastolic Blood Pressure 73 mm[Hg] 023 14:41:[address] [place] [address] Encounters Combined list of: 1) Encounters from Department of Veterans Affairs facilities going backup to the last 18 months, not all VA inpatient encounters are included; 2) Encounters from the Department of Defense facilities going backup to 280 months. Location Location Details Encounter Type Encounter Number Reason For Visit Attending Provider ADM Date DC Date Status Disposition Source ALYSON Castorena [facility] Outpatient Encounter [id number] 02/10 [facility] Outpatient Encounter [id number] 02/18 [facility] PRO PHONE CALL 11-20 MIN [id number] Diagnos is: ICD-10- CM Z71.9 Radiagraph Operator ing, unspeci fied KRISTIERICARDO CAROLYNN 02/20 [facility] Outpatient Encounter [id number] RICARDO FLOWERS 02/20 [facility] Outpatient Encounter [id number] 02/24 [facility] Outpatient Encounter [id number] 03/05 [facility] Outpatient Encounter [id number] 03/10 [facility] Outpatient Encounter [id number] 03/13 [facility] DIAGNOSTIC EVALUATION [id number] Diagnos is: ICD-10- CM Z71.9 Radiagraph Operator ing, unspeci MAC Thomas 05/12 [facility] OFFICE O/P NEW MOD 45 MIN [id number] Diagnos is: ICD-10- CM Z77.29 Contact with and exposur e to other hazardo us substan DAVID Medina 06/23 [facility] Outpatient Encounter [id number] 07/07 [facility] Outpatient Encounter [id number] 07/07 [facility] Outpatient Encounter [id number] [facility] Outpatient Encounter [id number] 07/09 [facility] Outpatient Encounter [id number] 07/13 [facility] PRO PHONE CALL 5-10 MIN [id number] Diagnos is: ICD-10- CM Z71.89 Other specifi ed residence counselor CARISSA Ornelas 07/13 [facility] Outpatient Encounter [id number] POLANCOYU IFFORD S 07[facility] Outpatient Encounter [id number] POLANCO,YU IFFORD S 07/15 [facility] Procedures Combined list of: 1) Procedures from Department of Veterans Affairs facilities going back up to thelast 18 months, not all [place] non-surgical procedures are included; 2) All procedures from the Department of [facility] facilities. Procedure Procedure Type Code Date Perfomer Comments Sourc e No data available for this section Ambulatory P harmacy Social History Combined list of available smoking, tobacco, and other social history from [facility] of [facility] and Veterans Affairs facilities. Social History Type Response Date Comment Sourc e Tobacco smoking status NHIS [place] FORMER USER 05/12/2023 [facility] History of tobacco use VA-TOBACCO QUIT < 1 YEAR 05/12/2023 [facility] Sex Representation Male (finding) 02/29/2020 Un known Organization Sexual Orientation Ambula tory Pharmacy Gender identity Ambulator y Pharmacy Assessment and Plan Combined list of future care activities from [facility] of [facility] and Veterans Affairs facilities (e.g., assessment and plan notes, appointments, orders, and referrals). Additional future care activities may be listed in the Plan of Care section. Result Assessment and Plan Date Source Assessment and Plan Extracted from:Title : Education Note Author: GLADYS CHADWICK Date: 12/23/22 Extracted from:Title: Office Clinic Note Author: MATTEO POLLACK Date: 10/17/20 EXAM, OCCUPATIONAL, LONG TERM OR SEPARATION FROM [employer] SERVICE, SHORT ?chronic R hip and R. [...] further testing required. Plan:? Termination Audiogram Complete. 08/08/2024 [address] Assessment and Plan Extracted from:Title : Education Note Author: GLADYS CHADWICK Date: 12/23/22 Extracted from:Title: Office Clinic Note Author: MATTEO POLLACK Date: 10/17/20 EXAM, OCCUPATIONAL, LONG TERM OR SEPARATION FROM [employer] SERVICE, SHORT ?chronic R hip and R. [...] further testing required. Plan:? Termination Audiogram Complete. 08/08/[address] [place] [address] 43 [facility] Functional Status Combined list of recent functional and cognitive assessments recorded at Department of Defense and Veterans Affairs (VA).VA Functional [place] Measurement (FIM) Scale: 1 = Total Assistance (Subject = 0% +), 2 = Maximal Assistance (Subject = 25% +), 3 = Moderate Assistance (Subject = 50% +), 4 = Minimal Assistance (Subject = 75% +), 5 = Supervision, 6 = Modified [place] (Device), 7 = Complete [place] (Timely, Safely). Assessment Date/Time Source Assessment Type Assessment Skill Assessment Score Assessment Details No data available for this section
== END 2024-08-08 15:55 | disposition home or self-care (01) ==
LOC: HO.HOS 14:45
PROVIDERS: PCP Family Medicine; Visit Provider Orthopaedic Surgery
DX: S43.109A Unspecified dislocation of unspecified acromioclavicular joint, initial encounter (principal)
CPT/HCPCS: 99214

== ENCOUNTER → 2024-08-08 14:44 | Outpatient (BNVA) | payer OTHER, SELFPAY | PROVIDERS: PCP Family Medicine; Visit Provider Orthopaedic Surgery | DX: S43.101A Unspecified dislocation of right acromioclavicular joint, initial encounter (principal); W19.XXXA Unspecified fall, initial encounter; Y93.23 Activity, snow (alpine) (downhill) skiing, snowboarding, sledding, tobogganing and snow tubing; Y92.9 Unspecified place or not applicable; Y99.9 Unspecified external cause status | CPT/HCPCS: 99212 ==

== ENCOUNTER 2024-08-11 14:00 | Outpatient (RCR) | payer OTHER, SELFPAY ==
--- NOTE | 2024-06-07 14:40 | MHC.PT.EP ---
[facility] [place] Office [place] Office [place] Office [address] Sara Vang [address] [phone] F: [phone] F: [phone] F: [phone] F: [phone] Physical Therapy Plan of Care Date of Evaluation: 06/07/24 Date of Surgery: n/a Diagnosis: separation of R AC joint Assessment: Patient is a 24 year old male presenting to PT with complaints of pain in his R shoulder. Pt reports onset of pain began 05/12/2024 due to falling when snowboarding. He presents today with impairments in ROM, shoulder strength, posture, tenderness to palpation. 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 Pt expresses [facility] goal of returning to PLOF, and is motivated to work towards this in PT. Clinical presentation today is most consistent with signs and sx associated with R AC separation and pt will benefit from skilled PT 2 week x 4 weeks to address the following problems and impairments noted upon evaluation: ROM, shoulder strength, posture, tenderness to palpation. These problems limit the patient with the following functional activities: reaching, lifting, pushing, work, ADLs, sleeping. The prescribed treatment plan of care is medically necessary. Co-morbidities of none were identified and taken into considerations of plan of care. Pt was educated on HEP, role of PT, prognosis, POC. Frequency and Duration: The patient will be seen 2 x week x 4 weeks Short Term Goals: Pt will demonstrate symmetrical ROM in 2 weeks with min to no pain. Pt will demonstrate improved R shoulder MMT strength by 1/3 grade in 2 weeks. Mcfp Goals: Pt will demonstrate improved SPADI score by 13 points in 4 weeks for improved functional mobility. Pt will demonstrate ability to reach with min to no pain in 4 weeks for return to PLOF. Pt will demonstrate ability to push and lift with min to no pain in 4 weeks to prepare for return to work. Treatment Plan: Modalities to reduce pain, spasms and effusion. Manual therapy to restore motion and function. Therapeutic exercise to improve strength and flexibility. Neuromuscular re-education for posture and balance. Therapeutic activities to return to functional activities of daily living. Electronically signed by: Emily Jack, PT, DPT, ATC Please sign and return to therapist. Thank you for your referral.
--- NOTE | 2024-08-11 14:52 | MHC.PT.DC ---
[facility] [place] Office [place] Office [place] Office [address] Sara Vang [address] [phone] F: [phone] F: [phone] F: [phone] F: [phone] Physical Therapy Discharge Report Diagnosis: separation of R AC joint Date of Surgery: n/a Date of Evaluation: 06/07/24 Date of Discharge: 08/11/24 Treatments to Date: 8 Cancellations to Date: 1 No Shows to Date: 0 Discharge Status: Achieved Goals Improved Function Independent with HEP Discharge Summary: 08/11/2024: Pt has made good progress since start of care. Recently he has been able to return to the gym and for the most part is pain free. When doing very high level activity he does get some residual soreness. At this time max benefits of PT have been provided and skilled PT is no longer indicated. I reviewed the proper way to progress and/or modify pushups to avoid pain. He is understanding and in agreement with d/c. Electronically signed by: Emily Jack, PT, DPT, ATC Please sign and return to therapist. Thank you for your referral.
== END 2024-08-11 14:53 | disposition home or self-care (01) ==
LOC: HO.PTCHIC 14:00
PROVIDERS: PCP Family Medicine; Visit Provider Physician Assistant
DX: S43.101D Unspecified dislocation of right acromioclavicular joint, subsequent encounter (principal)
CPT/HCPCS: 97110; 97161